=== PATIENT | male | born 1960 | race Caucasian/White ===

== ENCOUNTER 2016-09-25 08:46 | Emergency (ER) | payer OTHER ==
[~2016-09-25] VITALS: Ht 160 cm; Wt 63.8 kg
[~2016-09-25 08:46] MED LIST: FLM4 PO
[2016-09-25 08:50] VITALS: TEMP 36.4; Ht 160 cm; Wt 63.8 kg
[2016-09-25] MEDS ORDERED: ACET-1311 PO (09:08)
[2016-09-25 09:52] LABS: HEMATOCRIT 36.3 % (42-52); MEAN CELL VOLUME 75.6 fL (80-100); MEAN CORPUSCULAR HGB CONC 33.1 g/dl (32-36); MEAN PLATELET VOLUME 9.2 fL (7.4-10.4); PLATELET COUNT 423 K/uL (130-400); WHITE BLOOD COUNT 12.14 K/uL (4.8-10.8)
[2016-09-25 10:04] LABS: PROTHROMBIN TIME (PATIENT) 10.5 SECONDS (9.0-12.0)
[2016-09-25 10:11] LABS: BUN/CREATININE RATIO 10.3 (10-20); CALCIUM 8.8 mg/dl (8.5-10.1); CREATININE 1.1 mg/dl (0.60-1.40); POTASSIUM 4.2 mmol/L (3.5-5.1)
[2016-09-25 10:14] LABS: ALB/GLOB RATIO 0.8 (0.9-2)
[2016-09-25] MEDS ORDERED: HYDR25SU20 PR (10:44)
--- NOTE | 2016-09-25 10:45 | EMERGENCY ROOM VISIT NOTE ---
History First contact with patient: 08:57 Chief Complaint: RECTAL PAIN Stated Complaint: HEMORRHOIDS Nursing Triage Summary: hemorrhoids History of Present Illness Patient is an otherwise healthy 55-year-old white male who presents emergency department for evaluation of painful hemorrhoids 2 weeks. He has been using Preparation H cream and suppositories, which initially were helpful, but his symptoms are not improving. He has been using laxatives and has been moving his bowels, but with pain. He occasionally has some bright red blood in the toilet bowl and on the toilet tissue when he wipes, he also occasionally has some spontaneously in his underwear. He notes it is painful to sit. He rates his discomfort a 5/10. He had an episode of hemorrhoids about 4 years ago which were alleviated with home measures. He denies any upper abdominal pain, no nausea or vomiting. He denies any lightheadedness or dizziness. Review of Systems Review of systems as per HPI. All other systems reviewed were negative. 10 systems reviewed. Past Medical/Surgical History Medical Problems: (1) No Known Active Medical Problems Electronic medical records are reviewed and summarized as above/below. See Problem List. Social History Smoking Status: Current Every Day Smoker Alcohol Use: occasionally Housing Status: lives with family Occupation Status: employed Current/Historical Medications Scheduled Acetaminophen (Tylenol), 650 MG PO UD Hydrocortisone Acetate (Rectal (Anusol-Hc), 1 SUPP AR BID Physical Exam Vital Signs Date Time Temp Pulse Resp B/P (MAP) Pulse Ox O2 Delivery O2 Flow Rate FiO2 09/25/16 11:00 77 16 141/83 100 09/25/16 10:40 77 16 141/83 100 Room Air 09/25/16 08:50 36.4 77 16 177/90 100 Room Air Physical Exam CONSTITUTIONAL: Patient is a well-appearing 55-year-old white male who is awake and alert and in no acute distress. ABDOMEN: Bowel sounds are present. Abdomen is soft, nontender and nondistended. No guarding or rebound. RECTAL EXAM: Patient has 2 large, slightly tender external hemorrhoids, has a smaller, prolapsed internal hemorrhoid that is friable, but no active bleeding. Hemorrhoids are not thrombosed. No perirectal abscesses or fissures are appreciated. INTEGUMENTARY: No lesions or rash, normal skin turgor. LYMPH: No lymphadenopathy. Medical Decision & Procedures Laboratory Results 09/25/16 09:40 09/25/16 09:40 Test 09/25/16 09:40 Red Blood Count 4.80 M/uL (4.7-6.1) Mean Corpuscular Volume 75.6 fL (80-100) Mean Corpuscular Hemoglobin 25.0 pg (25-34) Mean Corpuscular Hemoglobin Concent 33.1 g/dl (32-36) RDW Standard Deviation 50.5 fL (36.4-46.3) RDW Coefficient of Variation 18.1 % (11.5-14.5) Mean Platelet Volume 9.2 fL (7.4-10.4) Prothrombin Time 10.5 SECONDS (9.0-12.0) Prothromb Time International Ratio 1.0 (0.9-1.1) Activated Partial Thromboplast Time 26.8 SECONDS (21.0-31.0) Partial Thromboplastin Ratio 1.0 Anion Gap 6.0 mmol/L (3-11) Est Creatinine Clear Calc Drug Dose 60.3 ml/min Estimated GFR () 86.5 Estimated GFR (Non- 74.6 BUN/Creatinine Ratio 10.3 (10-20) Calcium Level 8.8 mg/dl (8.5-10.1) Total Bilirubin 0.3 mg/dl (0.2-1) Aspartate Amino Transf (AST/SGOT) 18 U/L (15-37) Alanine Aminotransferase (ALT/SGPT) 21 U/L (12-78) Alkaline Phosphatase 68 U/L (45-117) Total Protein 7.5 gm/dl (6.4-8.2) Albumin 3.3 gm/dl (3.4-5.0) Globulin 4.2 gm/dl (2.5-4.0) Albumin/Globulin Ratio 0.8 (0.9-2) ED Course The patient was seen and assessed as above. CBC, CMP and coags were drawn. H& H is slightly low at 12 and 36, unclear if this is chronic for the patient has there are no old records or prior labs for comparison. Remainder of his labs are within normal limits. I was able to obtain an appointment for the patient with general surgery for next week for definitive care and management. He was given a prescription for Anusol suppositories to use in the interim. Differential diagnoses entertained included hemorrhoids, thrombosed hemorrhoid, perirectal/perianal abscess, rectal fistula, rectal fissure, diverticular bleed , among others. Medical Decision See ED Course. Medication Reconcilliation Current Medication List: was personally reviewed by me Blood Pressure Screening Patient's blood pressure: Elevated blood pressure Blood pressure disposition: Referred to PCP Impression Primary Impression: Hemorrhoids Departure Information Prescriptions Hydrocortisone Acetate (Rectal (ANUSOL-HC) 25 Mg Sup 1 SUPP AR BID for 14 Days, #28 SUPP Prov: Cyndee Nielsen PA 09/25/16 Referrals No Doctor, Assigned (PCP) Patient Instructions My [facility] [employer] publishing Additional Instructions Anusol HC suppository: 1 suppository per rectum twice daily. Colace 100mg: Take one twice daily as needed for hard stools or constipation. This is available over the counter. You may eat a regular high fiber diet, without restrictions. Cereals, fruits and vegetables are a good source of fiber. Continue current medications. Return to the ER immediately for abdominal pain, black or worsening bloody stool , passing out or feeling like you may pass out, vomiting, fevers, chest pains, difficulty breathing, worsening of your condition, or as needed. Establish care with a primary care provider for further care and management. Your blood pressure was elevated today. Have blood pressure rechecked. Follow up with General Surgery as arranged.
[2016-09-25 11:00] VITALS: BP 141/83; PULSE 77; O2SAT 100
== END 2016-09-25 11:00 | disposition home or self-care (01) ==
LOC: C.EDB 08:49 → C.EDA 11:00
DX: K64.9 Unspecified hemorrhoids (principal); F17.200 Nicotine dependence, unspecified, uncomplicated

== ENCOUNTER 2024-10-17 19:38 | Inpatient (IN) ==
[2024-10-17 20:08] LABS: Hematocrit (blood only) 29.6 % (42.0-52.0); Hemoglobin 10.6 g/dl (14.0-18.0); Immature Granulocytes # (auto) 0.27 K/uL (0.01-0.20); Immature Granulocytes % (auto) 1.9 %; Mean Corpuscular Hemoglobin 30.0 pg (25.0-34.0); Mean Corpuscular Volume 83.9 fL (80.0-100.0); Platelet Count 229 K/uL (130-400); RDW Standard Deviation 38.2 fL (36.4-46.3); Red Blood Count 3.53 M/uL (4.70-6.10); White Blood Count 14.05 K/ul (4.8-10.8)
[2024-10-17 20:26] LABS: Alanine Aminotransferase 60.0 U/L (7-52); Albumin Globulin Ratio 0.7 (0.9-2); Alkaline Phosphatase 732.0 U/L (34-104); Anion Gap 10.0 (3-11); Bilirubin,Total 0.6 mg/dl (0.2-1.0); Blood Urea Nitrogen 21.0 mg/dl (6-23); Calcium 9.8 mg/dl (8.6-10.3); Carbon Dioxide 25.0 mmol/L (21-32); Chloride 88.0 mmol/L (98-107); Creatinine Clr Calc Pharmacy 48.6 ml/min; Globulin 4.0 gm/dl (2.5-4.0); Glucose 106.0 mg/dl (70-99(Fasting)); Potassium 4.3 mmol/L (3.5-5.1); Sodium 123.0 mmol/L (136-145); Total Protein 6.8 gm/dl (6.0-8.3)
[2024-10-17] MEDS: OPTIRAY 320 100ml IV ONE (22:12)
--- NOTE | 2024-10-17 22:50 | Emergency Department Note ---
Impression & Plan Hyponatremia, Eye swelling, right, Visual changes, Periorbital cellulitis ED Provider Note ED Provider Note NAME: REJI REID AGE:64 SEX: Male : 1960 ARRIVES VIA: private vehicle INFORMANT: Patient ED PROVIDER(s): Em Martinez DO CHIEF COMPLAINT: referred by optometry HPI: This is a 64-year-old male who presents to the emergency department after being referred here by optometry due to concern for right eye swelling. Patient and family report he began noticing blurred and double vision approximately a month ago which led to a prior evaluation and imaging which led to the diagnosis of malignancy. Family states they found tumors in his lungs and liver. He did have an MRI of his brain and did see neurology. There were no lesions noted on his brain. He states over the last 2 weeks he has had difficulty opening his right eye. He has had persistent vision changes. He states today he began to notice right eye swelling and went back to his eye doctor and was referred here for additional evaluation. He denies fevers or chills, admits to pain around the eye and behind the eye. Denies any other sense of headaches or dizziness. He denies nausea or vomiting. PAST MEDICAL HISTORY:See Below PAST SURGICAL HISTORY:See Below FAMILY HISTORY:See Below SOCIAL HISTORY:See Below HOME MEDICATIONS:See Below ALLERGIES:See Below VITALS:See Below PHYSICAL EXAMINATION: GENERAL: alert, well appearing, well nourished, no distress, non-toxic EYE EXAM: left normal conjunctiva, PERRL and EOM's grossly intact; right eye with mild edema noted to the upper eyelid, no other periorbital edema, mild lateral chemosis noted, no subconjunctival hemorrhage, pupil with minimal response to light, increased tearing noted, no discharge OROPHARYNX: no exudate, no erythema, lips, buccal mucosa, and tongue normal and mucous membranes are moist NECK: supple, no nuchal rigidity, no adenopathy, non-tender LUNGS: Clear to auscultation. Normal chest wall mechanics, no w/r/r HEART: no murmurs, S1 normal and S2 normal ABDOMEN: abdomen soft, non-tender, normo-active bowel sounds, no masses, no rebound or guarding. BACK: Back is symmetrical on inspection and there is no deformity, no midline tenderness, no CVA tenderness. SKIN: no rashes, petechiae, orbruising UPPER EXTREMITIES: upper extremities are grossly normal. FROM, nml pulses b/l. LOWER EXTREMITIES: No pitting edema. FROM, nml pulses b/l. NEURO EXAM: Normal sensorium, cranial nerves II-XII grossly intact, normal speech, no facial droop,nogross weakness of arms, no gross weakness of legs. Gross sensation intact. No ataxia. Vital Signs: reviewed and remarkable Differential Diagnosis: Conjunctivitis, trauma, corneal abrasion, hyphema, glaucoma, iritis, corneal ulcer, dendrite, CRAO, CRVO, vitreous detachment, retinal detachment, as well as other pathologies. MEDICAL DECISION MAKING: This is a 64-year-old male who presents to the emergency department after seeing his eye doctor as an outpatient and referred here due to concerning additional findings. Patient with recent admission and finding of metastatic cancer that is still being evaluated. Patient was afebrile and vital signs stable. Labs drawn and sent, IV established, and patient monitored on telemetry. Patient sent for CT head and CT orbits. I did perform extensive ophthalmologic exam at bedside including slit-lamp and intraocular pressure testing. Patient has had blurred and double vision for greater than 1 month now according to the patient and his sister at bedside. He states his eye doctor today was concern for his ptosis and eyelid edema. Patient's clinical exam suggestive of evolving periorbital cellulitis. CT imaging did not show any evidence of retro-orbital infection or hematoma. Change in Noncon CT head tonight compared to 2 weeks ago was discussed with on-call neurosurgery at [facility]. They feel that this could be explained by the recent changes to the patient's health and social history and could be followed up as an outpatient in clinic and repeat CT without contrast performed in a month. Patient and sister updated on results at bedside. Patient was started on IV Unasyn here. Patient noted to have worsening hyponatremia compared to prior. This is previously suspected to be due to beer potomania, it is unclear if this is due to his malignancy or polydipsia with decreased food intake at this time. Given concerning findings, case discussed with the hospitalist team for additional evaluation and mgmt. Consultation(s): 0045: Discussed with Dr. Fernandez, [facility] [place] regarding the presentation and CT findings tonight. 0120: Discussed with DrJASMIN Alexander hospitalist team, for additional evaluation and mgmt. ER Treatment Provided: See below Diagnostics Interpreted By Me: -Cardiac Monitoring: An order was placed for continuous cardiac monitoring. The monitor shows a rate of 98 with normal sinus rhythm. -Laboratory studies: As stated above and show below. -Imaging studies: ct head: no ich Triage Nursing Note Reviewed Prior/Outside Records Reviewed - MRI from 09/27/2024 reviewed, DC summary from 09/28/24 reviewed Procedures: Slit Lamp Examination Indication:right eye swelling Slit lamp examination was performed in the standard fashion. Normal cornea noted on the left, chemosis noted on the right with conjunctival injection. Anterior chamber without cell and flare. Scleral injection present on the right. No discharge present. No foreign bodies noted. The patient tolerated the procedure well without complication. IOP OS 17 OD 24 Past Med/Surg History Problem List Periorbital cellulitis (Acute) Hyponatremia (Acute) Visual changes (Acute) Eye swelling, right (Acute) Insomnia Hypertension Carotid stenosis, left Lung nodule Wheezing Current smoker Hyponatremia (Acute) Headache (Acute) Diplopia (Acute) Metastatic cancer (Acute) Umbilical hernia Alcohol use Nicotine use No known health problems Surgical History History of bladder surgery S/P hemorrhoidectomy Family History Father , from [place] age 62 Myocardial infarction Mother , age 85 of CHF Coronary heart disease Sister Coronary heart disease "clogged arteries" Denies family history of Ovarian cancer Prostate cancer Breast cancer Colorectal cancer Social History Smoking Status: Former smoker Tobacco Type: Cigarettes Age Started Using Tobacco: 13; Age Quit Using Tobacco: 64; packs per day: 1; Cigarettes Per Day: 12-20; Second Hand Exposure: Yes; Do You Dip or Chew Tobacco: No; Hx Alcohol Use: No (Quit 1 month ago) Hx Substance Use: No Preferred Language: Czech Communication Ability: Effective Hearing Ability: Normal Plater Hot Dip Required: No Beliefs That Will Affect Care: None marital status: Single Current Living Situation: Alone current occupational status: employed 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 How many Children do You have: 0 Feels Safe at Home: Yes Childhood Exposure to Second-Hand Smoke: Yes Diet: regular caffeine: Yes during the past year weight has: remained stable Dental Care, Regularly: No 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 Seatbelt Use: always Sunscreen Use: No Assistive Devices: Cane, Crutches and Walker Allergies Allergies Allergy/AdvReac Type Severity Reaction Status Date / Time bee venom protein (honey bee) Allergy Severe SWELL/SOB Unverified 10/12/24 11:51 Home Meds Home Medications Medication Instructions Recorded Confirmed acetaminophen 325 mg tablet 650 mg PO QID PRN Fever Or Pain 09/27/24 10/18/24 meloxicam 15 mg tablet 15 mg PO QAM 10/18/24 10/18/24 trazodone 50 mg tablet 50 mg PO HS 10/18/24 10/18/24 Previous Rx's Medication Instructions Recorded albuterol sulfate 90 mcg/actuation 2 inh inhalation Q4H PRN shortness 09/28/24 aerosol inhaler of breath or wheezing #8.5 grams amlodipine 5 mg tablet 5 mg PO QAM #30 tabs 09/28/24 folic acid 1 mg tablet 1 mg PO QAM #30 tabs 09/28/24 multivitamin with folic acid 400 1 tab PO QAM #30 tabs 09/28/24 mcg tablet (Daily-Susan (with folic acid)) thiamine HCl (vitamin B1) 100 mg 100 mg PO QAM #30 tabs 09/28/24 tablet Results & Data (ED) Vital Signs Vital Signs - 24 hr 10/18/24 00:33 10/18/24 01:00 10/18/24 02:00 Pulse Rate 109 H 110 H Pulse Rate [Apical] 110 H Pulse Rate from SpO2 Sensor 111 H Pulse Rhythm [Apical] Regular Pulse Strength [Apical] Normal Respiratory Rate 17 16 Respiratory Effort / Characteristics Non-Labored Respiratory Depth Normal Respiratory Pattern Regular Blood Pressure [Right Arm] 117/77 Blood Pressure Mean [Right Arm] 90 Blood Pressure Position [Right Arm] Lying Pulse Oximetry 95 95 Oxygen Delivery Method Room Air Room Air Laboratory Data 10/18/24 04:50 10/18/24 16:39 Lab Results 10/17/24 Range/Units 19:50 WBC 14.05 H (4.8-10.8) K/ul RBC 3.53 L (4.70-6.10) M/uL Hgb 10.6 L (14.0-18.0) g/dl Hct 29.6 L (42.0-52.0) % MCV 83.9 (80.0-100.0) fL MCH 30.0 (25.0-34.0) pg MCHC 35.8 (32.0-36.0) g/dL RDW Std Deviation 38.2 (36.4-46.3) fL RDW Coeff of Katty 12.5 (11.5-14.5) % Plt Count 229 (130-400) K/uL MPV 9.9 (9.4-12.4) fL Immature Gran % (Auto) 1.9 % Neut % (Auto) 78.9 % Lymph % (Auto) 10.0 % Assumption % (Auto) 6.8 % Eos % (Auto) 2.1 % Baso % (Auto) 0.3 % Neut # (Auto) 11.09 H (1.40-6.50) K/uL Lymph # (Auto) 1.41 (1.20-3.40) K/uL Assumption # (Auto) 0.95 H (0.11-0.59) K/uL Eos # (Auto) 0.29 (0.00-0.50) K/uL Baso # (Auto) 0.04 (0.00-0.20) K/uL Immature Gran # (Auto) 0.27 H (0.01-0.20) K/uL Sodium 123 L (136-145) mmol/L Potassium 4.3 (3.5-5.1) mmol/L Chloride 88 L (98-107) mmol/L Carbon Dioxide 25 (21-32) mmol/L Anion Gap 10 (3-11) BUN 21 (6-23) mg/dl Creatinine 1.22 (0.6-1.4) mg/dl Est Cr Clr Drug Dosing 48.6 ml/min eGFR 65.79 BUN/Creatinine Ratio 17.2 (10-20) Glucose 106 H (70-99(Fasting)) mg/dl Osmolality 258 L (280-300) mOsm/kg Calcium 9.8 (8.6-10.3) mg/dl Total Bilirubin 0.6 (0.2-1.0) mg/dl AST 67 H (13-39) U/L ALT 60 H (7-52) U/L Alkaline Phosphatase 732 H (34-104) U/L Total Protein 6.8 (6.0-8.3) gm/dl Albumin 2.8 L (3.4-5.0) gm/dl Globulin 4.0 (2.5-4.0) gm/dl Albumin/Globulin Ratio 0.7 L (0.9-2) Administered Medications Acetaminophen (Acetaminophen 325 Mg Tab) 650 mg PO Q4H PRN PRN Reason: Pain or Fever Stop: 11/17/24 03:14 Last Admin: 10/18/24 19:27 Dose: 650 mg Documented By: melonie Admin: 10/18/24 03:36 Dose: 650 mg Documented By: RICARDO Amlodipine Besylate (Amlodipine Besylate 5 Mg Tab) 5 mg PO [facility] Stop: 11/17/24 08:59 Last Admin: 10/18/24 09:19 Dose: 5 mg Documented By: MELIZA Enoxaparin Sodium (Enoxaparin Inj 40 Mg/0.4 Ml Syr) 40 mg SQ Q24H [facility] Stop: 11/17/24 05:59 Last Admin: 10/18/24 06:03 Dose: 40 mg Documented By: RICARDO Folic Acid (Folic Acid 1 Mg Tab) 1 mg PO [facility] Stop: 11/17/24 08:59 Last Admin: 10/18/24 09:19 Dose: 1 mg Documented By: MELIZA Ampicillin Sodium/Sulbactam Sodium (Unasyn) 3,000 mg in 100 mls @ 200 mls/hr IV Q6H [facility] Stop: 10/25/24 05:59 Last Infusion: 10/18/24 17:44 Dose: Infused Documented By: Admin: 10/18/24 17:10 Dose: 200 mls/hr Documented By: Infusion: 10/18/24 13:25 Dose: Infused Documented By: Admin: 10/18/24 12:14 Dose: 200 mls/hr Documented By: Infusion: 10/18/24 06:44 Dose: Infused Documented By: Admin: 10/18/24 06:03 Dose: 200 mls/hr Documented By: RICARDO Vancomycin HCl 750 mg/ Sodium (Chloride) 265 mls @ 200 mls/hr IV Q12H [facility] Stop: 10/25/24 11:59 Last Infusion: 10/18/24 15:36 Dose: Infused Documented By: Admin: 10/18/24 13:52 Dose: 200 mls/hr Documented By: MELIZA Multivitamins (Multivitamin Tab) 1 tab PO QAM [facility] Stop: 11/17/24 08:59 Last Admin: 10/18/24 09:19 Dose: 1 tab Documented By: MELIZA Sodium Chloride (Sodium Chloride 1 Gm Tablet) 1 gm PO BID [facility] Stop: 11/17/24 20:59 Last Admin: 10/18/24 21:15 Dose: 1 gm Documented By: melonie Thiamine HCl (Thiamine Hcl 100 Mg Tab) 100 mg PO QAM [facility] Stop: 11/17/24 08:59 Last Admin: 10/18/24 09:19 Dose: 100 mg Documented By: MELIZA Trazodone HCl (Trazodone Hcl 50 Mg Tab) 50 mg PO HS [facility] Stop: 11/17/24 20:59 Last Admin: 10/18/24 21:15 Dose: 50 mg Documented By: melonie Discontinued Medications Ampicillin Sodium/Sulbactam Sodium (Unasyn) 3,000 mg in 100 mls @ 200 mls/hr IV NOW STA Stop: 10/18/24 00:22 Last Infusion: 10/18/24 01:02 Dose: Infused Documented By: Admin: 10/18/24 00:17 Dose: 200 mls/hr Documented By: LUIS Sodium Chloride (Nss) 1,000 mls @ 100 mls/hr IV .Q10H [facility] Stop: 10/21/24 01:14 Last Infusion: 10/18/24 03:58 Dose: Infused Documented By: Infusion: 10/18/24 03:57 Dose: 0 mls/hr Documented By: Admin: 10/18/24 01:59 Dose: 100 mls/hr Documented By: LUIS Lactated Ringer's (Lr) 1,000 mls @ 999 mls/hr IV .Q1H1M ONE Stop: 10/18/24 04:22 Last Infusion: 10/18/24 04:43 Dose: Infused Documented By: Admin: 10/18/24 03:36 Dose: 999 mls/hr Documented By: RICARDO Vancomycin HCl 1,250 mg/ (Sodium Chloride) 275 mls @ 200 mls/hr IV NOW ONE Stop: 10/18/24 05:37 Last Infusion: 10/18/24 06:02 Dose: Infused Documented By: Admin: 10/18/24 04:33 Dose: 200 mls/hr Documented By: RICARDO Ioversol (Optiray 320 100ml) 93 ml IV ONCE ONE Stop: 10/17/24 22:12 Last Admin: 10/17/24 22:12 Dose: 93 ml Documented By: [facility] Imaging Data Radiologist's Impression: Head CT 10/17/24 21:21 Exam(s): CT HEAD Without Contrast EXAM: CT Head Without Intravenous Contrast CLINICAL HISTORY: Reason for exam: known ca, right eye swelling/vision changes. TECHNIQUE: Axial computed tomography images of the head/brain without intravenous contrast. Automated exposure control was utilized for the study. A dose lowering technique was utilized adhering to the principles of ALARA. COMPARISON: Prior head CT from September 27, 2024. FINDINGS: Brain: There is a new small right subdural hygroma measuring 8.5 mm in maximal diameter and causing 2.6 mm of midline shift to the left.. No hemorrhage. Mild nonspecific white matter changes. No edema. Ventricles: Unremarkable. No ventriculomegaly. Bones/joints: Unremarkable. No acute fracture. Soft tissues: Unremarkable. Sinuses: Chronic sphenoid and ethmoid sinusitis. No acute sinusitis. Mastoid air cells: Unremarkable as visualized. No mastoid effusion. IMPRESSION: No evidence of acute intracranial pathology. There is a new small right subdural hygroma causing 2.6 mm of midline shift to the left. Electronically signed by: Isa Flores MD 10/17/24 23:[address] 10/17/24 21:21 Exam(s): CT ORBITS IV Amt: 93 cc opti 320 EXAM: CT Orbits With Intravenous Contrast CLINICAL HISTORY: Reason for exam: R vision change, chemosis, eyelid swelling. TECHNIQUE: Axial computed tomography images of the orbits with intravenous contrast. Automated exposure control was utilized for the study. A dose lowering technique was utilized adhering to the principles of ALARA. CONTRAST: Patient received 93 cc opti 320 of IV contrast COMPARISON: No relevant prior studies available. FINDINGS: Orbits: Unremarkable. Sinuses: Chronic ethmoid and sphenoid sinusitis. No air-fluid levels. Bones/joints: No acute fracture. Soft tissues: Moderate soft tissue edema over the right orbit and inflammation of the lacrimal gland without evidence of abscess or drainable fluid collection. No radiopaque foreign body. IMPRESSION: Moderate soft tissue swelling over the right orbit and lacrimal gland and without evidence of abscess or drainable fluid collection. Electronically signed by: Isa Flores MD 10/17/24 23:50 PM Discharge Plan Visit Data Chief Complaint: Eye Problems Stated Complaint: EXTERNAL OPTHALMOPLEGIA, REF BY EYE DR ED Provider: Em Martinez Discharge Problem: Hyponatremia, Eye swelling, right, Visual changes, Periorbital cellulitis Patient Disposition: Admitted As Inpatient Condition: Fair Discharge Instructions Interventions: ED Discharge Assessment Last Done: 10/18/24 03:51
--- NOTE | 2024-10-17 23:40 | CT Scan Report ---
Exam(s): CT HEAD Without Contrast EXAM: CT Head Without Intravenous Contrast CLINICAL HISTORY: Reason for exam: known ca, right eye swelling/vision changes. TECHNIQUE: Axial computed tomography images of the head/brain without intravenous contrast. Automated exposure control was utilized for the study. A dose lowering technique was utilized adhering to the principles of ALARA. COMPARISON: Prior head CT from September 27, 2024. FINDINGS: Brain: There is a new small right subdural hygroma measuring 8.5 mm in maximal diameter and causing 2.6 mm of midline shift to the left.. No hemorrhage. Mild nonspecific white matter changes. No edema. Ventricles: Unremarkable. No ventriculomegaly. Bones/joints: Unremarkable. No acute fracture. Soft tissues: Unremarkable. Sinuses: Chronic sphenoid and ethmoid sinusitis. No acute sinusitis. Mastoid air cells: Unremarkable as visualized. No mastoid effusion. IMPRESSION: No evidence of acute intracranial pathology. There is a new small right subdural hygroma causing 2.6 mm of midline shift to the left. Electronically signed by: Isa Flores MD 10/17/24 23:39 PM
--- NOTE | 2024-10-17 23:51 | CT Scan Report ---
Exam(s): CT ORBITS IV Amt: 93 cc opti 320 EXAM: CT Orbits With Intravenous Contrast CLINICAL HISTORY: Reason for exam: R vision change, chemosis, eyelid swelling. TECHNIQUE: Axial computed tomography images of the orbits with intravenous contrast. Automated exposure control was utilized for the study. A dose lowering technique was utilized adhering to the principles of ALARA. CONTRAST: Patient received 93 cc opti 320 of IV contrast COMPARISON: No relevant prior studies available. FINDINGS: Orbits: Unremarkable. Sinuses: Chronic ethmoid and sphenoid sinusitis. No air-fluid levels. Bones/joints: No acute fracture. Soft tissues: Moderate soft tissue edema over the right orbit and inflammation of the lacrimal gland without evidence of abscess or drainable fluid collection. No radiopaque foreign body. IMPRESSION: Moderate soft tissue swelling over the right orbit and lacrimal gland and without evidence of abscess or drainable fluid collection. Electronically signed by: Isa Flores MD 10/17/24 23:50 PM
[2024-10-18] MEDS: AMPICILLIN/SULBACTAM SOD 3,000 MG/100 ML BAG IV STA (00:17)
[2024-10-18] MEDS: SODIUM CHLORIDE 0.9% 1,000 ML IV SCH (01:59)
--- NOTE | 2024-10-18 02:24 | History & Physical Report ---
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 Patient initially tachycardic in the ER with elevated WBC count of 14.05. Did become febrile in the ER. Likely secondary to skin/soft tissue infection vs malignancy. -Admit to medical with telemetry -Check ESR and CRP -Ordered blood cultures when patient became febrile, of note - he already received antibiotics at the time the cultures were ordered -Will give additional 1L crystalloid - sepsis fluid amount 1690mL -Continue antibiotic coverage with Vancomycin and Unasyn -Recommend serial eye exams to test for extraocular movements -Tylenol PRN -Zofran PRN #Periorbital cellulitis - patient with swelling, redness of right eye, very limited extraocular movements in all directions. Pupil is round and appropriately reactive. CT as above does not reveal infection of the orbital structures - no abscess or collection -Follow cultures -Continue antibiotic coverage with Unasyn and Vancomycin -Tylenol PRN #Hyponatremia - patient initially presented with similar. Na now at 123. Patient reports he has been drinking a lot of water but not eating much - suspect low solute intake contributing as well as SIADH from lung mass/presumed malignancy -Check urine and serum osm -Check urine Na -Will complete patient's sepsis fluid with LR -Free H2O restriction 1200mL #Hygroma - CT of the head revealed a new small right subdural hygroma causing a 2.6mm of midline shift to the left. This was discussed extensively between ER attending and Neurosurgery - thought that patient's symptoms are not secondary to this hygroma. Thought that the hygroma at this time is of no surgical or clinical significance and may be secondary to patient's recent abstinence from EtOH or metabolic changes. -Consider re-imaging for stability -If persistent hygroma may need neurosurgical followup outpatient #Hypertension - blood pressure appropriate -Amlodipine 5mg po daily -Monitor #Insomnia -Trazodone 50mg po qHS #History of EtOH use - former -Continue Thiamine, Folic Acid and MVI daily Ppx - Lovenox History of Present Illness Chief Complaint: swelling, periorbital cellulitis right eye Primary Care Provider: Jm Whelan DO Ham Cespedes is a 64yo male presenting with right eye periorbital cellulitis, diplopia. Patient with history of hypertension. He was recently admitted to [facility] 09/27 - 09/28/24 after presenting with diplopia and cranial nerve IV deficit. He was found to have hyponatremia Bd=911 as well as a spiculated mass in RUL suspicious for primary bronchogenic carcinoma. Also found to have numerous hepatic metastasis. Patient had an MRI of the brain on 09/27/24 which was NEGATIVE for infarction, lesion or metastatic disease. He was discharged home on 09/28/24. Patient had a followup visit with his PCP on 10/03/24. He had a liver biopsy performed on 10/05/24 which revealed adenocarcinoma consistent with metastatic colorectal primary. Patint has a followup appointment with [facility] scheduled for 11/01/24. Patient has had swelling and pain of the right eye progressive for the last 2-3 days. He reports seeing double, pain and tearing in the eye as well as some purulent drainage. His swelling has progressed - now patient is unable to open his right eye. He denies fever, chills, chest pain, cough, SOB, nausea, vomiting. No trauma to the eye. He was seen by Ophtho today and sent to the ER. In the ER patient febrile, tachycardic ER Course: Unasyn NSS x 1L Allergies Allergy/AdvReac Type Severity Reaction Status Date / Time bee venom protein (honey bee) Allergy Severe SWELL/SOB Unverified 10/12/24 11:51 Home Medications Medication Instructions Recorded Confirmed Type acetaminophen 325 mg tablet 650 mg PO QID PRN Fever Or Pain 09/27/24 10/18/24 History albuterol sulfate 90 mcg/actuation 2 inh inhalation Q4H PRN shortness 09/28/24 10/18/24 Rx aerosol inhaler of breath or wheezing #8.5 grams amlodipine 5 mg tablet 5 mg PO QAM #30 tabs 09/28/24 10/18/24 Rx folic acid 1 mg tablet 1 mg PO QAM #30 tabs 09/28/24 10/18/24 Rx multivitamin with folic acid 400 1 tab PO QAM #30 tabs 09/28/24 10/18/24 Rx mcg tablet (Daily-Susan (with folic acid)) thiamine HCl (vitamin B1) 100 mg 100 mg PO QAM #30 tabs 09/28/24 10/18/24 Rx tablet meloxicam 15 mg tablet 15 mg PO QAM 10/18/24 10/18/24 History trazodone 50 mg tablet 50 mg PO HS 10/18/24 10/18/24 History Past Med/Surg History Problem List Periorbital cellulitis (Acute) Hyponatremia (Acute) Visual changes (Acute) Eye swelling, right (Acute) Insomnia Hypertension Carotid stenosis, left Lung nodule Wheezing Current smoker Hyponatremia (Acute) Headache (Acute) Diplopia (Acute) Metastatic cancer (Acute) Umbilical hernia Alcohol use Nicotine use No known health problems Surgical History History of bladder surgery S/P hemorrhoidectomy Family History Father , from [place] age 62 Myocardial infarction Mother , age 85 of CHF Coronary heart disease Sister Coronary heart disease "clogged arteries" Denies family history of Ovarian cancer Prostate cancer Breast cancer Colorectal cancer Social History Smoking Status: Former smoker Tobacco Type: Cigarettes Age Started Using Tobacco: 13; Age Quit Using Tobacco: 64; packs per day: 1; Cigarettes Per Day: 12-20; Second Hand Exposure: Yes; Do You Dip or Chew Tobacco: No; Hx Alcohol Use: No (Quit 1 month ago) Hx Substance Use: No Preferred Language: Occitan Communication Ability: Effective Hearing Ability: Normal Campus Recruiter Required: No Beliefs That Will Affect Care: None marital status: Single Current Living Situation: Alone current occupational status: employed 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 How many Children do You have: 0 Feels Safe at Home: Yes Childhood Exposure to Second-Hand Smoke: Yes Diet: regular caffeine: Yes during the past year weight has: remained stable Dental Care, Regularly: No 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 Seatbelt Use: always Sunscreen Use: No Assistive Devices: Cane and Walker Review of Systems Review of Systems: All systems reviewed & are unremarkable except as noted in HPI & below Physical Exam Physical Exam: General: patient resting comfortably, NAD HEENT: NC/AT, right eye with mild periorbital edema mostly of upper eyelid, redness, cellulitis, patient unable to open eye, limited eye movement to all directions, some conjunctival injection and tearing, pupils equal, round and reactive, examination of left eye largely unremarkable, external ear normal to inspection and nontender, nares patent, moist mucus membranes, dentition intact, no oropharyngeal lesions, neck supple, trachea midline, no LAD, no thyromegaly, no JVD Heart: +S1/S2, regular, tachycardic, no m/r/g Lungs: equal air entry bilaterally, no rales/rhonchi/wheezes Abd: +BS, soft, NT/ND, no masses/organomegaly/ascites Ext: warm, 2+ pulses in UE/LE bilaterally, no clubbing/cyanosis or edema Results & Data Results & Data Vital Signs (Past 12 Hours) Vital Signs Temp Pulse Pulse Resp BP BP Pulse Ox 10/18/24 01:00 110 H 17 117/77 95 10/18/24 00:33 109 H 10/17/24 23:00 104 H 18 132/82 93 10/17/24 22:36 92 H 14 95 10/17/24 22:21 92 H 18 98 10/17/24 22:15 92 H 21 98 10/17/24 22:06 93 H 17 95 10/17/24 21:42 94 H 24 93 10/17/24 21:33 93 H 24 94 10/17/24 21:12 90 20 96 10/17/24 21:00 90 16 95 10/17/24 20:57 89 18 95 10/17/24 20:42 88 18 95 10/17/24 20:30 85 23 96 10/17/24 20:25 89 10/17/24 19:41 36.9 C 93 H 19 130/70 99 O2 Del Method 10/18/24 01:00 Room Air 10/18/24 00:33 10/17/24 23:00 Room Air 10/17/24 22:36 10/17/24 22:21 10/17/24 22:15 10/17/24 22:06 10/17/24 21:42 10/17/24 21:33 10/17/24 21:12 10/17/24 21:00 10/17/24 20:57 10/17/24 20:42 10/17/24 20:30 10/17/24 20:25 10/17/24 19:41 Room Air Laboratory Results Laboratory Results WBC 14.05 K/ul (4.8-10.8) H 10/17/24 19:50 RBC 3.53 M/uL (4.70-6.10) L 10/17/24 19:50 Hgb 10.6 g/dl (14.0-18.0) L 10/17/24 19:50 Hct 29.6 % (42.0-52.0) L 10/17/24 19:50 MCV 83.9 fL (80.0-100.0) 10/17/24 19:50 MCH 30.0 pg (25.0-34.0) 10/17/24 19:50 MCHC 35.8 g/dL (32.0-36.0) 10/17/24 19:50 RDW Std Deviation 38.2 fL (36.4-46.3) 10/17/24 19:50 RDW Coeff of Katty 12.5 % (11.5-14.5) 10/17/24 19:50 Plt Count 229 K/uL (130-400) 10/17/24 19:50 MPV 9.9 fL (9.4-12.4) 10/17/24 19:50 Immature Gran % (Auto) 1.9 % 10/17/24 19:50 Neut % (Auto) 78.9 % 10/17/24 19:50 Lymph % (Auto) 10.0 % 10/17/24 19:50 [place] % (Auto) 6.8 % 10/17/24 19:50 Eos % (Auto) 2.1 % 10/17/24 19:50 Baso % (Auto) 0.3 % 10/17/24 19:50 Neut # (Auto) 11.09 K/uL (1.40-6.50) H 10/17/24 19:50 Lymph # (Auto) 1.41 K/uL (1.20-3.40) 10/17/24 19:50 [place] # (Auto) 0.95 K/uL (0.11-0.59) H 10/17/24 19:50 Eos # (Auto) 0.29 K/uL (0.00-0.50) 10/17/24 19:50 Baso # (Auto) 0.04 K/uL (0.00-0.20) 10/17/24 19:50 Immature Gran # (Auto) 0.27 K/uL (0.01-0.20) H 10/17/24 19:50 Sodium 123 mmol/L (136-145) L 10/17/24 19:50 Potassium 4.3 mmol/L (3.5-5.1) 10/17/24 19:50 Chloride 88 mmol/L (98-107) L 10/17/24 19:50 Carbon Dioxide 25 mmol/L (21-32) 10/17/24 19:50 Anion Gap 10 (3-11) 10/17/24 19:50 BUN 21 mg/dl (6-23) 10/17/24 19:50 Creatinine 1.22 mg/dl (0.6-1.4) 10/17/24 19:50 Est Cr Clr Drug Dosing 48.6 ml/min 10/17/24 19:50 eGFR 65.79 10/17/24 19:50 BUN/Creatinine Ratio 17.2 (10-20) 10/17/24 19:50 Glucose 106 mg/dl (70-99(Fasting)) H 10/17/24 19:50 Calcium 9.8 mg/dl (8.6-10.3) 10/17/24 19:50 Total Bilirubin 0.6 mg/dl (0.2-1.0) 10/17/24 19:50 AST 67 U/L (13-39) H 10/17/24 19:50 ALT 60 U/L (7-52) H 10/17/24 19:50 Alkaline Phosphatase 732 U/L (34-104) H 10/17/24 19:50 Total Protein 6.8 gm/dl (6.0-8.3) 10/17/24 19:50 Albumin 2.8 gm/dl (3.4-5.0) L 10/17/24 19:50 Globulin 4.0 gm/dl (2.5-4.0) 10/17/24 19:50 Albumin/Globulin Ratio 0.7 (0.9-2) L 10/17/24 19:[address] 10/17/24 21:21 Exam(s): CT HEAD Without Contrast EXAM: CT Head Without Intravenous Contrast CLINICAL HISTORY: Reason for exam: known ca, right eye swelling/vision changes. TECHNIQUE: Axial computed tomography images of the head/brain without intravenous contrast. Automated exposure control was utilized for the study. A dose lowering technique was utilized adhering to the principles of ALARA. COMPARISON: Prior head CT from September 27, 2024. FINDINGS: Brain: There is a new small right subdural hygroma measuring 8.5 mm in maximal diameter and causing 2.6 mm of midline shift to the left.. No hemorrhage. Mild nonspecific white matter changes. No edema. Ventricles: Unremarkable. No ventriculomegaly. Bones/joints: Unremarkable. No acute fracture. Soft tissues: Unremarkable. Sinuses: Chronic sphenoid and ethmoid sinusitis. No acute sinusitis. Mastoid air cells: Unremarkable as visualized. No mastoid effusion. IMPRESSION: No evidence of acute intracranial pathology. There is a new small right subdural hygroma causing 2.6 mm of midline shift to the left. Electronically signed by: Isa Flores MD 10/17/24 23:[address] 10/17/24 21:21 Exam(s): CT ORBITS IV Amt: 93 cc opti 320 EXAM: CT Orbits With Intravenous Contrast CLINICAL HISTORY: Reason for exam: R vision change, chemosis, eyelid swelling. TECHNIQUE: Axial computed tomography images of the orbits with intravenous contrast. Automated exposure control was utilized for the study. A dose lowering technique was utilized adhering to the principles of ALARA. CONTRAST: Patient received 93 cc opti 320 of IV contrast COMPARISON: No relevant prior studies available. FINDINGS: Orbits: Unremarkable. Sinuses: Chronic ethmoid and sphenoid sinusitis. No air-fluid levels. Bones/joints: No acute fracture. Soft tissues: Moderate soft tissue edema over the right orbit and inflammation of the lacrimal gland without evidence of abscess or drainable fluid collection. No radiopaque foreign body. IMPRESSION: Moderate soft tissue swelling over the right orbit and lacrimal gland and without evidence of abscess or drainable fluid collection. Electronically signed by: Isa Flores MD 10/17/24 23:50 PM Code Status & VTE Plan VTE Prophylaxis Plan VTE Prophylaxis will be ordered: Yes PG Care Time/CCT Total # of Minutes Spent Total Time Spent with Patient: Total time spent is greater than 50% in coordination of care (as documented) at patient's floor/unit and/or counseling patient: Coding Level of Care Code 31038 INT INP/OBS CARE 3/75MIN Diagnoses Periorbital cellulitis L03.213 Hyponatremia E87.1 Hypertension I10 Metastatic cancer C79.9
[2024-10-18] MEDS: LACTATED RINGER'S 1,000 ML IV ONE (03:36)
[2024-10-18] MEDS: ACETAMINOPHEN 325 MG TAB PO PRN (03:36)
[2024-10-18] MEDS ORDERED: VANCOMYCIN CONSULT ACTIVE PRN (03:50)
[2024-10-18] MEDS ORDERED: VANCOMYCIN HCL / NSS 1,000 MG/270 ML BAG IV SCH (03:50)
[2024-10-18] MEDS ORDERED: ACETAMINOPHEN 325 MG TAB PO PRN (03:50)
[2024-10-18] MEDS ORDERED: ALBUTEROL HFA 8 GM INHALER INH PRN (03:50)
[2024-10-18] MEDS: VANCOMYCIN HCL 1,250 MG in SODIUM CHLORIDE 0.9% 250 ML IV ONE (04:33)
[2024-10-18 05:04] LABS: Hematocrit (blood only) 26.6 % (42.0-52.0); Hemoglobin 9.4 g/dl (14.0-18.0); Mean Corpuscular Hemoglobin 29.2 pg (25.0-34.0); Mean Corpuscular Volume 82.6 fL (80.0-100.0); Platelet Count 205 K/uL (130-400); RDW Standard Deviation 38.0 fL (36.4-46.3); Red Blood Count 3.22 M/uL (4.70-6.10); White Blood Count 14.22 K/ul (4.8-10.8)
[2024-10-18 05:20] LABS: Magnesium 1.7 mg/dl (1.7-2.4)
[2024-10-18 05:21] LABS: Alanine Aminotransferase 46.0 U/L (7-52); Alkaline Phosphatase 646.0 U/L (34-104); Anion Gap 10.0 (3-11); Bilirubin,Total 0.6 mg/dl (0.2-1.0); Blood Urea Nitrogen 17.0 mg/dl (6-23); Calcium 8.8 mg/dl (8.6-10.3); Carbon Dioxide 22.0 mmol/L (21-32); Chloride 92.0 mmol/L (98-107); Creatinine Clr Calc Pharmacy 61.1 ml/min; Glucose 85.0 mg/dl (70-99(Fasting)); Potassium 4.0 mmol/L (3.5-5.1); Sodium 124.0 mmol/L (136-145); Total Protein 5.9 gm/dl (6.0-8.3)
[2024-10-18 05:47] LABS: INR 1.3 (0.9-1.1); Prothrombin Time 13.6 Seconds (9.0-12.0)
--- NOTE | 2024-10-18 05:58 | Pharmacy Report ---
Pharmacy PK ABX Note - Date of Service October 18, 2024 - Assessment and Plan Assessment 64 year old M receiving Unasyn/vancomycin for treatment of periorbital cellulitis. Pertinent microbiologic data includes: blood cultures pending. Day # 1 of antimicrobial therapy. Plan Vancomycin * Loading dose: 1250 mg IV x 1 * Maintenance dose: 750 mg IV every 12 hours * Regimen is predicted to achieve target AUC/HARI of 400-600 mg/L.hr * Random level ordered for: 10/20/24 @ 0800 Pharmacy will continue to follow and will adjust dose/frequency as necessary. Thank you. Pharmacy has transitioned to AUC monitoring for vancomycin. AUC/HARI is the preferred PK/PD target and is associated with decreased risk of nephrotoxicity compared to traditional trough targets.
[2024-10-18] MEDS: AMPICILLIN/SULBACTAM SOD 3,000 MG/100 ML BAG IV SCH (06:03)
[2024-10-18] MEDS: ENOXAPARIN INJ 40 MG/0.4 ML SYR SQ SCH (06:03)
[2024-10-18] MEDS: THIAMINE HCL 100 MG TAB PO SCH (09:19)
[2024-10-18] MEDS: FOLIC ACID 1 MG TAB PO SCH (09:19)
[2024-10-18] MEDS: MULTIVITAMIN TAB PO SCH (09:19)
--- NOTE | 2024-10-18 11:45 | CT Scan Report ---
CT SCAN OF THE BRAIN WITHOUT IV CONTRAST CLINICAL HISTORY: Follow-up hygroma COMPARISON STUDY: CT of the brain dated 10/17/2024. CT and MRI of the brain dated 09/27/2024. TECHNIQUE: Unenhanced axial CT scan of the brain is performed from the vertex to the skull base. Imag es are reviewed in the axial, sagittal, coronal planes. A dose lowering technique was utilized adheri ng to the principles of ALARA. CT DOSE: 663.26 mGy.cm FINDINGS: Brain parenchyma: A low-attenuation extra-axial fluid collection along the right convexity has not ap preciably changed from yesterday, but is new from 09/27/2024. This measures up to 1.0 cm and effaces t he subjacent cortical sulci. There is approximately 2 mm of [id number] midline shift. There is age -related involutional change noting [id number] patchy subcortical and periventricular microangi opathic disease. No parenchymal hemorrhage is identified. There is no evidence of acute territorial i schemia by CT criteria. Leyva-white matter differentiation is preserved. No extra-axial fluid collecti on is seen on the left. Ventricles, sulci, cisterns: Prominent secondary to involutional change. Intracranial vasculature: There is atherosclerotic calcification of the cavernous carotid arteries. Calvarium: No depressed calvarial fracture is seen. Soft tissues: There is right periorbital/supraorbital scalp contusion. Sinuses and mastoids: There is complete opacification of the sphenoid sinuses and the posterior ethmo id sinuses. Thickening and sclerosis of the sinus cruz indicates chronicity. Moderate mucosal thicke florence seen within the frontal sinuses and anterior ethmoid sinuses. There is mild mucosal thickening w ithin the maxillary antra. There are small mastoid effusions. Orbits: The bony orbits are grossly intact. IMPRESSION: 1. Again seen is a low attenuation extra-axial fluid collection along the right convexity. This is un changed from yesterday, but new from 09/27/2024. This could represent an acute subdural hygroma or a l ow-attenuation subdural hematoma. 2. This causes mass effect with effacement of the subjacent cortical sulci and minimal right to left midline shift. This is also unchanged. 3. There is no parenchymal hemorrhage or evidence of acute territorial ischemia by CT criteria. 4. There is right periorbital/supraorbital soft tissue edema. 6. Pansinus disease as above. ACT 112: Negative or not required by law. Electronically signed by: Paul Barbosa M.D. 10/18/2024 11:44 AM
--- NOTE | 2024-10-18 12:27 | Infectious Disease Consult ---
Date of Consultation October 18, 2024 Assessment & Plan (1) Periorbital cellulitis: Plan Problems: #Preseptal cellulitis Micro: 10/18 BCx x2: pending Abx: Vanc 10/18 - present Unasyn 10/18 - present 64 yo M with HTN, recent admission 09/27-09/28/24 with diplopia and CN IV deficit, found to have hyponatremia and spiculated mass in RUL suspicious for primary bronchogenic carcinoma, as well as numerous hepatic metastases s/p liver biopsy 10/05/24 which revealed adenocarcinoma consistent with metastatic colorectal primary who presented on 10/17 with progressive R eye swelling and pain x 2-3 days. Reported seeing double, and also pain and tearing in his eye and some purulent drainage. Unable to open his R eye due to swelling. Denied fevers, chills. He was seen by ophthalmology today and sent to the ED. Admitted for preseptal cellulitis. On presentation, pt was afebrile, VSS. Labs showed WBC 14.05, Na 123, AST 67, ALT 60, alk phos 732, ESR 79. CT head with no evidence of acute intracranial pathology, new small R subdural hygroma causing 2.6 mm midline shift to left. CT orbits with IV contrast showed moderate soft tissue swelling over the R orbit and lacrimal gland and without evidence of abscess or drainable fluid collection. Started on vanc, Unasyn. Liver US with multifocal hepatic metastasis, contracted gallbladder with mild wall thickening, no biliary ductal dilation. Discussion: With difficulty with extraocular movements, does raise concern for orbital cellulitis. However, no comment on inflammation of extraocular muscles, fat stranding on CT orbits. Will continue antibiotics and monitor for improvement. Recommendations: - Continue vanc, Unasyn and monitor for improvement Will continue to follow Consultation Information This patient recommendation is based on a telemedicine consult request which was completed asynchronously through chart review and information provided by the primary physician. The patient was not seen or examined today. The evaluation is consultative in nature and all patient care and treatment decisions can either be accepted or rejected by the patient's primary hospital-based treating physician using their own independent medical judgment for their patient. [employer] contact information: Please call [facility] . (Phone Number For Physician Use Only) An e-consult was performed as the video cart is not functioning. Time Spent Reviewing Chart: 31+ minutes History of Present Illness Reason for Consultation: Preseptal cellulitis, sepsis Attending Physician: Aj Giles MD History of Present Illness 64 yo M with HTN, recent admission 09/27-09/28/24 with diplopia and CN IV deficit, found to have hyponatremia and spiculated mass in RUL suspicious for primary bronchogenic carcinoma, as well as numerous hepatic metastases s/p liver biopsy 10/05/24 which revealed adenocarcinoma consistent with metastatic colorectal primary who presented on 10/17 with progressive R eye swelling and pain x 2-3 days. Reported seeing double, and also pain and tearing in his eye and some purulent drainage. Unable to open his R eye due to swelling. Denied fevers, chills. He was seen by ophthalmology today and sent to the ED. On presentation, pt was afebrile, VSS. Labs showed WBC 14.05, Na 123, AST 67, ALT 60, alk phos 732, ESR 79. CT head with no evidence of acute intracranial pathology, new small R subdural hygroma causing 2.6 mm midline shift to left. CT orbits with IV contrast showed moderate soft tissue swelling over the R orbit and lacrimal gland and without evidence of abscess or drainable fluid collection. Started on vanc, Unasyn. Liver US with multifocal hepatic metastasis, contracted gallbladder with mild wall thickening, no biliary ductal dilation. Allergies Allergy/AdvReac Type Severity Reaction Status Date / Time bee venom protein (honey bee) Allergy Severe SWELL/SOB Unverified 10/12/24 11:51 Home Medications Medication Instructions Recorded Confirmed Type acetaminophen 325 mg tablet 650 mg PO QID PRN Fever Or Pain 09/27/24 10/18/24 History albuterol sulfate 90 mcg/actuation 2 inh inhalation Q4H PRN shortness 09/28/24 10/18/24 Rx aerosol inhaler of breath or wheezing #8.5 grams amlodipine 5 mg tablet 5 mg PO QAM #30 tabs 09/28/24 10/18/24 Rx folic acid 1 mg tablet 1 mg PO QAM #30 tabs 09/28/24 10/18/24 Rx multivitamin with folic acid 400 1 tab PO QAM #30 tabs 09/28/24 10/18/24 Rx mcg tablet (Daily-Susan (with folic acid)) thiamine HCl (vitamin B1) 100 mg 100 mg PO QAM #30 tabs 09/28/24 10/18/24 Rx tablet meloxicam 15 mg tablet 15 mg PO QAM 10/18/24 10/18/24 History trazodone 50 mg tablet 50 mg PO HS 10/18/24 10/18/24 History Patient History Surgical History History of bladder surgery S/P hemorrhoidectomy Family History Father , from [place] age 62 Myocardial infarction Mother , age 85 of CHF Coronary heart disease Sister Coronary heart disease "clogged arteries" Denies family history of Ovarian cancer Prostate cancer Breast cancer Colorectal cancer Social History Smoking Status: Former smoker Tobacco Type: Cigarettes Age Started Using Tobacco: 13; Age Quit Using Tobacco: 64; packs per day: 1; Cigarettes Per Day: 12-20; Second Hand Exposure: Yes; Do You Dip or Chew Tobacco: No; Hx Alcohol Use: No (Quit 1 month ago) Hx Substance Use: No Preferred Language: [place] Islander Communication Ability: Effective Hearing Ability: Normal Train Master Required: No Beliefs That Will Affect Care: None marital status: Single Current Living Situation: Alone current occupational status: employed 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 How many Children do You have: 0 Feels Safe at Home: Yes Childhood Exposure to Second-Hand Smoke: Yes Diet: regular caffeine: Yes during the past year weight has: remained stable Dental Care, Regularly: No 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 Seatbelt Use: always Sunscreen Use: No Assistive Devices: Cane, Crutches and Walker Results & Data Vital Signs (Past 12 Hours) Vital Signs Temp Pulse Pulse Resp BP BP Pulse Ox 10/18/24 09:19 100 H 18 128/68 94 10/18/24 06:59 98 H 10/18/24 04:49 103 H 10/18/24 04:30 36.9 C 10/18/24 03:05 38.1 C H 10/18/24 03:00 110 H 22 134/79 92 10/18/24 02:27 109 H 22 94 10/18/24 02:00 110 H 16 95 10/18/24 01:00 110 H 17 117/77 95 10/18/24 00:33 109 H O2 Del Method 10/18/24 09:19 Room Air 10/18/24 06:59 10/18/24 04:49 10/18/24 04:30 10/18/24 03:05 10/18/24 03:00 10/18/24 02:27 10/18/24 02:00 Room Air 10/18/24 01:00 Room Air 10/18/24 00:33 Laboratory Results Short CBC 10/17/24 10/18/24 Range/Units 19:50 04:50 WBC 14.05 H 14.22 H (4.8-10.8) K/ul Hgb 10.6 L 9.4 L (14.0-18.0) g/dl Hct 29.6 L 26.6 L (42.0-52.0) % Plt Count 229 205 (130-400) K/uL BMP 10/17/24 10/18/24 10/18/24 19:50 04:50 11:30 Sodium 123 L 124 L 126 L Potassium 4.3 4.0 4.3 Chloride 88 L 92 L 92 L Carbon Dioxide 25 BUN 21 17 18 Creatinine 1.22 0.97 1.03 Glucose 106 H 85 71 Calcium 9.8 8.8 9.5 Liver Function 10/17/24 10/18/24 Range/Units 19:50 04:50 Total Bilirubin 0.6 0.6 (0.2-1.0) mg/dl Direct Bilirubin 0.2 (0-0.2) mg/dl AST 67 H 52 H (13-39) U/L ALT 60 H 46 (7-52) U/L Alkaline Phosphatase 732 H 646 H (34-104) U/L Albumin 2.8 L 2.5 L (3.4-5.0) gm/dl Diagnostic Findings Head CT 10/17/24 21:21 Exam(s): CT HEAD Without Contrast EXAM: CT Head Without Intravenous Contrast CLINICAL HISTORY: Reason for exam: known ca, right eye swelling/vision changes. TECHNIQUE: Axial computed tomography images of the head/brain without intravenous contrast. Automated exposure control was utilized for the study. A dose lowering technique was utilized adhering to the principles of ALARA. COMPARISON: Prior head CT from September 27, 2024. FINDINGS: Brain: There is a new small right subdural hygroma measuring 8.5 mm in maximal diameter and causing 2.6 mm of midline shift to the left.. No hemorrhage. Mild nonspecific white matter changes. No edema. Ventricles: Unremarkable. No ventriculomegaly. Bones/joints: Unremarkable. No acute fracture. Soft tissues: Unremarkable. Sinuses: Chronic sphenoid and ethmoid sinusitis. No acute sinusitis. Mastoid air cells: Unremarkable as visualized. No mastoid effusion. IMPRESSION: No evidence of acute intracranial pathology. There is a new small right subdural hygroma causing 2.6 mm of midline shift to the left. Electronically signed by: Isa Flores MD 10/17/24 23:[address] 10/17/24 21:21 Exam(s): CT ORBITS IV Amt: 93 cc opti 320 EXAM: CT Orbits With Intravenous Contrast CLINICAL HISTORY: Reason for exam: R vision change, chemosis, eyelid swelling. TECHNIQUE: Axial computed tomography images of the orbits with intravenous contrast. Automated exposure control was utilized for the study. A dose lowering technique was utilized adhering to the principles of ALARA. CONTRAST: Patient received 93 cc opti 320 of IV contrast COMPARISON: No relevant prior studies available. FINDINGS: Orbits: Unremarkable. Sinuses: Chronic ethmoid and sphenoid sinusitis. No air-fluid levels. Bones/joints: No acute fracture. Soft tissues: Moderate soft tissue edema over the right orbit and inflammation of the lacrimal gland without evidence of abscess or drainable fluid collection. No radiopaque foreign body. IMPRESSION: Moderate soft tissue swelling over the right orbit and lacrimal gland and without evidence of abscess or drainable fluid collection. Electronically signed by: Isa Flores MD 10/17/24 23:50 PM Liver Ultrasound 10/18/24 02:23 ABDOMINAL ULTRASOUND, RIGHT UPPER QUADRANT HISTORY: Acutely elevated LFTs abnormal LFTs. COMPARISON: PET CT 10/11/2024, ultrasound-guided biopsy of the liver 10/05/2024 FINDINGS: Pancreas: The pancreas demonstrates a normal echotexture, partially obscured by bowel gas. Liver: Multifocal hepatic metastasis redemonstrated measuring up to approximately 6.7 cm, generally stable compared to the prior PET/CT one week earlier. Pathologically enlarged periportal lymph nodes are again seen. Gallbladder: Partially contracted with mild wall thickening. No gallstones. CBD: 4 mm Right kidney: Mild pelviectasis without hydronephrosis. IMPRESSION: 1. Multifocal hepatic metastasis redemonstrated which appear similar to the PET/CT from 10/11/2024. 2. Contracted gallbladder with mild wall thickening. No cholelithiasis identified. 3. No biliary ductal dilation. ACT 112: Negative or not required by law. Electronically signed by: Francisco Mcneill M.D. 10/18/2024 1:[address] 10/18/24 10:12 CT SCAN OF THE BRAIN WITHOUT IV CONTRAST CLINICAL HISTORY: Follow-up hygroma COMPARISON STUDY: CT of the brain dated 10/17/2024. CT and MRI of the brain dated 09/27/2024. TECHNIQUE: Unenhanced axial CT scan of the brain is performed from the vertex to the skull base. Images are reviewed in the axial, sagittal, coronal planes. A dose lowering technique was utilized adhering to the principles of ALARA. CT DOSE: 663.26 mGy.cm FINDINGS: Brain parenchyma: A low-attenuation extra-axial fluid collection along the right convexity has not appreciably changed from yesterday, but is new from 09/27/2024. This measures up to 1.0 cm and effaces the subjacent cortical sulci. There is approximately 2 mm of [id number] midline shift. There is age-related involutional change noting [id number] patchy subcortical and periventricular microangiopathic disease. No parenchymal hemorrhage is identified. There is no evidence of acute territorial ischemia by CT criteria. Leyva-white matter differentiation is preserved. No extra-axial fluid collection is seen on the left. Ventricles, sulci, cisterns: Prominent secondary to involutional change. Intracranial vasculature: There is atherosclerotic calcification of the cavernous carotid arteries. Calvarium: No depressed calvarial fracture is seen. Soft tissues: There is right periorbital/supraorbital scalp contusion. Sinuses and mastoids: There is complete opacification of the sphenoid sinuses and the posterior ethmoid sinuses. Thickening and sclerosis of the sinus cruz indicates chronicity. Moderate mucosal thickening seen within the frontal sinuses and anterior ethmoid sinuses. There is mild mucosal thickening within the maxillary antra. There are small mastoid effusions. Orbits: The bony orbits are grossly intact. IMPRESSION: 1. Again seen is a low attenuation extra-axial fluid collection along the right convexity. This is unchanged from yesterday, but new from 09/27/2024. This could represent an acute subdural hygroma or a low-attenuation subdural hematoma. 2. This causes mass effect with effacement of the subjacent cortical sulci and minimal right to left midline shift. This is also unchanged. 3. There is no parenchymal hemorrhage or evidence of acute territorial ischemia by CT criteria. 4. There is right periorbital/supraorbital soft tissue edema. 6. Pansinus disease as above. ACT 112: Negative or not required by law. Electronically signed by: Paul Barbosa M.D. 10/18/2024 11:44 AM Medications Administered Current Inpatient Medications Acetaminophen (Acetaminophen 325 Mg Tab) 650 mg PO Q4H PRN PRN Reason: Pain or Fever Stop: 11/17/24 03:14 Last Admin: 10/18/24 03:36 Dose: 650 mg Acetaminophen (Acetaminophen 325 Mg Tab) 650 mg PO QID PRN PRN Reason: Fever Or Pain Stop: 11/17/24 03:49 Albuterol (Albuterol Hfa 8 Gm Inhaler) 2 puffs INH Q4H PRN PRN Reason: shortness of breath or wheezing Stop: 11/17/24 03:49 Amlodipine Besylate (Amlodipine Besylate 5 Mg Tab) 5 mg PO QAM [facility] Stop: 11/17/24 08:59 Last Admin: 10/18/24 09:19 Dose: 5 mg Docusate Sodium (Docusate Sodium 100 Mg Cap) 100 mg PO BID PRN PRN Reason: Constipation Stop: 11/17/24 03:49 Enoxaparin Sodium (Enoxaparin Inj 40 Mg/0.4 Ml Syr) 40 mg SQ Q24H [facility] Stop: 11/17/24 05:59 Last Admin: 10/18/24 06:03 Dose: 40 mg Folic Acid (Folic Acid 1 Mg Tab) 1 mg PO QAM [facility] Stop: 11/17/24 08:59 Last Admin: 10/18/24 09:19 Dose: 1 mg Ampicillin Sodium/Sulbactam Sodium (Unasyn) 3,000 mg in 100 mls @ 200 mls/hr IV Q6H [facility] Stop: 10/25/24 05:59 Last Infusion: 10/18/24 13:25 Dose: Infused Vancomycin HCl 750 mg/ Sodium (Chloride) 265 mls @ 200 mls/hr IV Q12H [facility] Stop: 10/25/24 11:59 Last Admin: 10/18/24 13:52 Dose: 200 mls/hr Meloxicam (Meloxicam 7.5 Mg Tab) 15 mg PO QAM [facility] Stop: 11/17/24 08:59 Miscellaneous Information (Vancomycin Consult Active) 1 each N/A UD PRN PRN Reason: Consult Stop: 11/17/24 03:49 Multivitamins (Multivitamin Tab) 1 tab PO QAM [facility] Stop: 11/17/24 08:59 Last Admin: 10/18/24 09:19 Dose: 1 tab Ondansetron HCl (Ondansetron Inj 2 Mg/Ml 2 Ml Vial) 4 mg IV Q6H PRN PRN Reason: Nausea And Vomiting Stop: 11/17/24 03:49 Thiamine HCl (Thiamine Hcl 100 Mg Tab) 100 mg PO QAM [facility] Stop: 11/17/24 08:59 Last Admin: 10/18/24 09:19 Dose: 100 mg Trazodone HCl (Trazodone Hcl 50 Mg Tab) 50 mg PO HS [facility] Stop: 11/17/24 20:59
[2024-10-18 12:59] LABS: Anion Gap 9.0 (3-11); Blood Urea Nitrogen 18.0 mg/dl (6-23); Calcium 9.5 mg/dl (8.6-10.3); Carbon Dioxide 25.0 mmol/L (21-32); Chloride 92.0 mmol/L (98-107); Creatinine Clr Calc Pharmacy 57.5 ml/min; Glucose 71.0 mg/dl (70-99(Fasting)); Potassium 4.3 mmol/L (3.5-5.1); Sodium 126.0 mmol/L (136-145)
--- NOTE | 2024-10-18 13:35 | Ultrasound Report ---
ABDOMINAL ULTRASOUND, RIGHT UPPER QUADRANT HISTORY: Acutely elevated LFTs abnormal LFTs. COMPARISON: PET CT 10/11/2024, ultrasound-guided biopsy of the liver 10/05/2024 FINDINGS: Pancreas: The pancreas demonstrates a normal echotexture, partially obscured by bowel gas. Liver: Multifocal hepatic metastasis redemonstrated measuring up to approximately 6.7 cm, generally s table compared to the prior PET/CT one week earlier. Pathologically enlarged periportal lymph nodes a re again seen. Gallbladder: Partially contracted with mild wall thickening. No gallstones. CBD: 4 mm Right kidney: Mild pelviectasis without hydronephrosis. IMPRESSION: 1. Multifocal hepatic metastasis redemonstrated which appear similar to the PET/CT from 10/11/2024. 2. Contracted gallbladder with mild wall thickening. No cholelithiasis identified. 3. No biliary ductal dilation. ACT 112: Negative or not required by law. Electronically signed by: Francisco Mcneill M.D. 10/18/2024 1:34 PM
[2024-10-18] MEDS: VANCOMYCIN 750 MG in SODIUM CHLORIDE 0.9% 250 ML IV SCH (13:52)
[2024-10-18 17:10] LABS: Anion Gap 9.0 (3-11); Blood Urea Nitrogen 16.0 mg/dl (6-23); Calcium 9.2 mg/dl (8.6-10.3); Carbon Dioxide 24.0 mmol/L (21-32); Chloride 92.0 mmol/L (98-107); Creatinine Clr Calc Pharmacy 55.4 ml/min; Glucose 75.0 mg/dl (70-99(Fasting)); Potassium 4.1 mmol/L (3.5-5.1); Sodium 125.0 mmol/L (136-145)
--- NOTE | 2024-10-18 17:16 | Communication Note ---
Date of Service: October 18, 2024 MRSA nasal swab negative however ID currently recommending continuing vanc + Unasyn. Possible discharge tomorrow if cellulitis/labs improving. Add salt tabs for SIADH. CT head with stable hygroma, will continue Lovenox for VTE prophylaxis as high risk of this but will hold his meloxicam. US liver shows known liver mets. Discussed with oncology and has follow up with Dr Amos.
[2024-10-18] MEDS: SODIUM CHLORIDE 1 GM TABLET PO SCH (21:15)
[2024-10-19 06:17] LABS: Hematocrit (blood only) 27.3 % (42.0-52.0); Hemoglobin 9.8 g/dl (14.0-18.0); Mean Corpuscular Hemoglobin 30.1 pg (25.0-34.0); Mean Corpuscular Volume 83.7 fL (80.0-100.0); Platelet Count 216 K/uL (130-400); RDW Standard Deviation 37.4 fL (36.4-46.3); Red Blood Count 3.26 M/uL (4.70-6.10); White Blood Count 14.75 K/ul (4.8-10.8)
[2024-10-19 06:42] LABS: Alanine Aminotransferase 34.0 U/L (7-52); Alkaline Phosphatase 634.0 U/L (34-104); Anion Gap 11.0 (3-11); Bilirubin,Total 0.6 mg/dl (0.2-1.0); Blood Urea Nitrogen 16.0 mg/dl (6-23); Calcium 9.1 mg/dl (8.6-10.3); Carbon Dioxide 23.0 mmol/L (21-32); Chloride 93.0 mmol/L (98-107); Creatinine Clr Calc Pharmacy 51.5 ml/min; Glucose 72.0 mg/dl (70-99(Fasting)); Potassium 3.8 mmol/L (3.5-5.1); Sodium 127.0 mmol/L (136-145); Total Protein 5.8 gm/dl (6.0-8.3)
[2024-10-19 06:52] LABS: INR 1.2 (0.9-1.1); Prothrombin Time 13.0 Seconds (9.0-12.0)
--- NOTE | 2024-10-19 11:09 | Infectious Disease Progress Nt ---
Date of Service October 19, 2024 Assessment & Plan (1) Periorbital cellulitis: Plan Problems: #Preseptal cellulitis Micro: 10/18 BCx x2: NGTD Abx: Vanc 10/18 - present Unasyn 10/18 - present 64 yo M with HTN, recent admission 09/27-09/28/24 with diplopia and CN IV deficit, found to have hyponatremia and spiculated mass in RUL suspicious for primary bronchogenic carcinoma, as well as numerous hepatic metastases s/p liver biopsy 10/05/24 which revealed adenocarcinoma consistent with metastatic colorectal primary who presented on 10/17 with progressive R eye swelling and pain x 2-3 days. Reported seeing double, and also pain and tearing in his eye and some purulent drainage. Unable to open his R eye due to swelling. Denied fevers, chills. He was seen by ophthalmology today and sent to the ED. Admitted for preseptal cellulitis. On presentation, pt was afebrile, VSS. Labs showed WBC 14.05, Na 123, AST 67, ALT 60, alk phos 732, ESR 79. CT head with no evidence of acute intracranial pathology, new small R subdural hygroma causing 2.6 mm midline shift to left. CT orbits with IV contrast showed moderate soft tissue swelling over the R orbit and lacrimal gland and without evidence of abscess or drainable fluid co llection. Started on vanc, Unasyn. Liver US with multifocal hepatic metastasis, contracted gallbladder with mild wall thickening, no biliary ductal dilation. Discussion: With difficulty with extraocular movements, does raise concern for orbital cellulitis. However, no comment on inflammation of extraocular muscles, fat stranding on CT orbits. Will continue antibiotics and monitor for improvement. Chemosis noted on picture of R eye on 10/19. Recommendations: - Continue vanc, Unasyn and monitor for improvement - May need repeat imaging if no improvement Will continue to follow Admission and Anticipated Discharge Date Admission Date: October 18, 2024 Subjective This patient recommendation is based on a telemedicine consult request which was completed asynchronously through chart review and information provided by the primary physician. The patient was not seen or examined today. The evaluation is consultative in nature and all patient care and treatment decisions can either be accepted or rejected by the patient's primary hospital-based treating physician using their own independent medical judgment for their patient. An e-consult was performed as the video cart is not functioning. Time Spent Reviewing Chart: 11 - 20 minutes WBC remains elevated at 14.75 Afebrile Pt feels the swelling is down Results & Data Vital Signs (Past 12 Hours) Vital Signs Temp Pulse Pulse Resp BP BP Pulse Ox 10/19/24 07:49 36.5 C 109 H 17 151/81 H 95 10/19/24 06:45 95 H 10/19/24 02:44 37.1 C 104 H 18 133/72 92 O2 Del Method 10/19/24 07:49 Room Air 10/19/24 06:45 10/19/24 02:44 Room Air Laboratory Results Short CBC 10/19/24 Range/Units 05:42 WBC 14.75 H (4.8-10.8) K/ul Hgb 9.8 L (14.0-18.0) g/dl Hct 27.3 L (42.0-52.0) % Plt Count 216 (130-400) K/uL BMP 10/18/24 10/18/24 10/19/24 11:30 16:39 05:42 Sodium 126 L 125 L 127 L Potassium 4.3 4.1 3.8 Chloride 92 L 92 L 93 L Carbon Dioxide 25 24 23 BUN 18 16 16 Creatinine 1.03 1.07 1.15 Glucose 71 75 72 Calcium 9.5 9.2 9.1 Liver Function 10/19/24 Range/Units 05:42 Total Bilirubin 0.6 (0.2-1.0) mg/dl Direct Bilirubin 0.2 (0-0.2) mg/dl AST 40 H (13-39) U/L ALT 34 (7-52) U/L Alkaline Phosphatase 634 H (34-104) U/L Albumin 2.4 L (3.4-5.0) gm/dl
--- NOTE | 2024-10-19 11:27 | Hospitalist Progress Note ---
Date of Service October 19, 2024 Assessment & Plan (1) Periorbital cellulitis: (2) Hyponatremia: (3) Hypertension: (4) Metastatic cancer: (5) Sepsis: (6) SIADH (syndrome of inappropriate ADH production): Plan 64yo male with recently diagnosed malignancy, likely metastatic colon adenocarcinoma presenting with pain, swelling of right eye as well as hyponatremia #Sepsis / periorbital cellulitis - present on admission. Patient initially tachycardic in the ER with elevated WBC count of 14.05. Did become febrile in the ER. Blood cultures negative at 24 hours Chemosis now present is concerning for orbital cellulitis and may need to repeat orbital scan and transfer for ophthalmology evaluation if not improving Repeat CRP tomorrow, pending clinical course will also trend procalcitonin q2d Appreciate ID recommendations (discussed care over [employer]) - will continue on Unasyn and vancomycin #Hyponatremia Suspected SIADH, improving with fluid restriction 1.5L and NaCl 1g tabs BID #Hygroma - CT of the head revealed a new small right subdural hygroma causing a 2.6mm of midline shift to the left. This was discussed extensively between ER attending and Neurosurgery - thought that patient's symptoms are not secondary to this hygroma. Thought that the hygroma at this time is of no surgical or clinical significance. This is new since September 27 scan but appears stable on repeat imaging. Will continue on Lovenox currently. No falls per patient since September 27. 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 Will only re-image if patient's neurological status changes -If persistent hygroma may need neurosurgical followup outpatient #Hypertension - blood pressure appropriate -Amlodipine 5mg po daily -Monitor #Insomnia -Trazodone 50mg po qHS #History of EtOH use - former -Continue Thiamine, Folic Acid and MVI daily VTE Prophylaxis - Lovenox 40mg SQ daily Disposition - stable for downgrade to med/surg Admission and Anticipated Discharge Date Admission Date: October 18, 2024 Subjective He feels the swelling is down. No new changes in his vision. No pain or limitation with eye movement. No fever or chills overnight. Physical Exam 2 Eyes: normal visual maynard by confrontation (and acuity), + conjunctival abnormality (right eye chemosis present (see pictures)) and EOM intact bilaterally (no change to intermittent diplopia present for last month) Respiratory: normal respiratory effort, lungs clear to auscultation Cardiovascular: Rate/Rhythm: regular rhythm and + tachycardic Gastrointestinal (Abdomen): normal bowel sounds, soft, nontender, no hepatosplenomegaly Skin: Chemosis present on right eye with periorbital erythema and swelling Results & Data Results & Data Vital Signs (Past 12 Hours) Vital Signs Temp Pulse Pulse Resp BP BP Pulse Ox 10/19/24 07:49 36.5 C 109 H 17 151/81 H 95 10/19/24 06:45 95 H 10/19/24 02:44 37.1 C 104 H 18 133/72 92 O2 Del Method 10/19/24 07:49 Room Air 10/19/24 06:45 10/19/24 02:44 Room Air PG Care Time/CCT Total # of Minutes Spent Total Time Spent with Patient: Total time spent is greater than 50% in coordination of care (as documented) at patient's floor/unit and/or counseling patient: Coding Level of Care Code 53233 SUB INP/OBS CARE 3/50MIN Diagnoses Periorbital cellulitis L03.213 Hyponatremia E87.1 Hypertension I10 Metastatic cancer C79.9 Sepsis A41.9 SIADH (syndrome of inappropriate ADH production) E22.2
[2024-10-20] MEDS: MELOXICAM 7.5 MG TAB PO SCH (08:30)
[2024-10-20 08:46] LABS: Hematocrit (blood only) 27.5 % (42.0-52.0); Hemoglobin 9.9 g/dl (14.0-18.0); Immature Granulocytes # (auto) 0.62 K/uL (0.01-0.20); Immature Granulocytes % (auto) 4.2 %; Mean Corpuscular Hemoglobin 30.1 pg (25.0-34.0); Mean Corpuscular Volume 83.6 fL (80.0-100.0); Platelet Count 224 K/uL (130-400); RDW Standard Deviation 38.0 fL (36.4-46.3); Red Blood Count 3.29 M/uL (4.70-6.10); White Blood Count 14.92 K/ul (4.8-10.8)
[2024-10-20 08:56] LABS: Anion Gap 11.0 (3-11); Blood Urea Nitrogen 14.0 mg/dl (6-23); Calcium 8.7 mg/dl (8.6-10.3); Carbon Dioxide 20.0 mmol/L (21-32); Chloride 97.0 mmol/L (98-107); Creatinine Clr Calc Pharmacy 57.0 ml/min; Glucose 75.0 mg/dl (70-99(Fasting)); Potassium 3.4 mmol/L (3.5-5.1); Sodium 128.0 mmol/L (136-145)
--- NOTE | 2024-10-20 09:28 | Pharmacy Report ---
Pharmacy PK ABX Note - Date of Service October 20, 2024 - Assessment and Plan Assessment 10/20: * Random vancomycin level this AM was ~8 mcg/ml - will increase vancomycin dosing to maintain AUC/HARI 400-600. Will increase to vancomycin 1 gm iv q 12 hours starting now. Blood cultures are negative 10/18: * 64 year old M receiving Unasyn/vancomycin for treatment of periorbital cellulitis. Pertinent microbiologic data includes: blood cultures pending. Plan Vancomycin * Increase to 1gm iv q 12 hours * ID following Pharmacy will continue to follow and will adjust dose/frequency as necessary. Thank you. Pharmacy has transitioned to AUC monitoring for vancomycin. AUC/HARI is the preferred PK/PD target and is associated with decreased risk of nephrotoxicity compared to traditional trough targets.
[2024-10-20] MEDS: VANCOMYCIN HCL 1,000 MG in SODIUM CHLORIDE 0.9% 250 ML IV SCH (10:00)
[2024-10-20] MEDS: OPTIRAY 320 125ml IV ONE (11:07)
--- NOTE | 2024-10-20 11:29 | Infectious Disease Progress Nt ---
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 Reported seeing double, and also pain and tearing in his eye and some purulent drainage. Unable to open his R eye due to swelling. Denied fevers, chills. He was seen by ophthalmology today and sent to the ED. Admitted for preseptal cellulitis. On presentation, pt was afebrile, VSS. Labs showed WBC 14.05, Na 123, AST 67, ALT 60, alk phos 732, ESR 79. CT head with no evidence of acute intracranial pathology, new small R subdural hygroma causing 2.6 mm midline shift to left. CT orbits with IV contrast showed moderate soft tissue swelling over the R orbit and lacrimal gland and without evidence of abscess or drainable fluid co llection. Started on vanc, Unasyn. Liver US with multifocal hepatic metastasis, contracted gallbladder with mild wall thickening, no biliary ductal dilation. Discussion: Pt felt there was some improvement in swelling 10/19. On 10/20, pt still unable to open R eye. Fever curve improved--last febrile 10/18 AM. Continues with leukocytosis, but there may be a chronic component as pt had leukocytosis to ~13 in mid-September as well, perhaps related to malignancy? Repeat CT orbits done 10/20 due to persistent swelling and leukocytosis--showed persistent R periorbital/preseptal cellulitis without discrete mass or drainable fluid collection, no definite post septal inflammatory changes. Recommendations: - Continue vanc, Unasyn and monitor for improvement - If pt continues to improve, can transition to doxycycline 100 mg PO BID and amox/clav 875 mg PO BID to complete a total 7-10 day course (day 1 on 10/18) Please note that ID does not round or write notes over the weekend. If questions or concerns arise, please contact the Infectious Disease Call Center and ask to speak with the covering ID physician. Admission and Anticipated Discharge Date Admission Date: October 19, 2024 Subjective This patient recommendation is based on a telemedicine consult request which was completed asynchronously through chart review and information provided by the primary physician. The patient was not seen or examined today. The evaluation is consultative in nature and all patient care and treatment decisions can either be accepted or rejected by the patient's primary hospital-based treating physician using their own independent medical judgment for their patient. An e-consult was performed as the video cart is not functioning. Time Spent Reviewing Chart: 11 - 20 minutes Still unable to open his R eye WBC remains elevated at 14.92 Afebrile Results & Data Vital Signs (Past 12 Hours) Vital Signs Temp Pulse Resp BP Pulse Ox O2 Del Method 10/20/24 07:18 36.8 C 106 H 17 129/68 92 Room Air Diagnostic Findings Orbit CT 10/20/24 10:17 CT orbit BI wo/w con HISTORY: 64 years-old Male R preseptal cellulitls, cannot raise eyelid follow- up study in patient with right periorbital cellulitis COMPARISON: PET CT 10/11/2024, CT ORBIT October 17, 2024, head CT October 18, 2024. TECHNIQUE: Multiple axial CT images of the orbits were obtained with and without IV contrast. A dose lowering technique was used consistent with the principals of MICKEYRA. FINDINGS: Mild right periorbital subcutaneous edema with increased enhancement redemonstrated. No definite post septal inflammatory changes, fluid collections or mass lesions identified. Normal appearance of the extraocular musculature and bilateral optic nerves. The edema is again noted extending along the superior ma rgin of the orbit within the extraconal space with mild enlargement and increased enhancement of the lacrimal gland. Partially imaged subdural hygroma versus low-density subdural hematoma on the right cerebral convexity measuring up to 7 mm, previously 10 mm midline shift again noted. Osseous heterogeneity of the clivus demonstrating increased tracer uptake on the prior PET/CT which may represent underlying osseous metastasis. Moderate to severe mucosal thickening of the ethmoid and sphenoid sinuses. IMPRESSION: 1. Persistent right periorbital/preseptal cellulitis without discrete mass or drainable fluid collection. 2. No definite post septal inflammatory changes. 3. Osseous metastasis better seen on prior PET/CT. 4. Partially imaged small right-sided subdural hygroma versus low density subdural hematoma, better evaluated on the 10/18/[address] ACT 112: Negative or not required by law. The above report was generated using voice recognition software. It may contain grammatical, syntax or spelling errors. Electronically signed by: Francisco Mcneill M.D. 10/20/2024 11:39 AM Chest CTA 10/20/24 10:18 CT ANGIOGRAM OF THE CHEST CLINICAL HISTORY: Right upper lobe lung lesion. Hepatic metastatic disease. COMPARISON STUDY: Chest CT dated 09/27/2024. PET CT dated 10/11/2024. TECHNIQUE: Following the IV administration of 118 cc of Optiray 320, CT angiogram of the chest was performed from the upper abdomen to the thoracic inlet utilizing the pulmonary embolus protocol. Images are reviewed in the axial, sagittal, and coronal planes. 3-D MIPS images are created and assessed. IV contrast was administered without complication. A dose lowering technique was utilized adhering to the principles of ALARA. CT DOSE: 1698.24 mGy.cm FINDINGS: Thyroid: Imaged portions of the thyroid gland are normal in size and attenuation. Thoracic aorta: There is atherosclerotic calcification of the thoracic aorta, which is normal in caliber and demonstrates standard 3-vessel arch anatomy. No dissection is seen. Pulmonary vasculature: The pulmonary trunk is normal in caliber. There are no filling defects identified in main, lobar, or segmental pulmonary branches to suggest pulmonary embolus. Heart: The heart is normal in size noting a small pericardial effusion. Lungs and pleural spaces: Emphysematous change is noted. A 1.8 x 2.2 x 1.3 cm spiculated right upper lobe pulmonary lesion is again seen on image #171. There are small pleural effusions with dependent atelectasis. No airspace consolidation is seen typical for pneumonia. The trachea and central airways are clear. Mediastinum: There is no mediastinal lymphadenopathy. Shira: Clear. Axillae: There is no axillary lymphadenopathy. Upper abdomen: Again seen is evidence of multifocal hepatic metastatic disease. A conglomerate left lobe hepatic lesion on image #18 measures up to 6.3 cm in length. This is likely similar to recent prior examinations. There are patho logically enlarged retrocrural and retroperitoneal lymph nodes. A left retrocrural node on image #22 measures 1.2 x 1.0 cm and a left para-aortic node on image #12 measures up to 1.1 cm. A pericaval node on image #21 measures 2.8 x 1.4 cm. There are also enlarged lymph nodes in the pedro hepatis. Skeletal structures: There is significant paravertebral soft tissue thickening or edema at T12, which has significantly increased from the 10/11/2024 examination. The underlying bone is heterogeneous and this may be related to bony metastatic disease. There is likely a metastatic lesion in the inferior right scapula on image #166 and the anterior left 6th rib on image #98. Metastatic bony lesions are difficult to see by CT but were appreciated on PET. IMPRESSION: 1. There is no evidence of pulmonary embolus in the main, lobar, or segmental pulmonary arteries. 2. Emphysema. 3. Small pleural effusions are new from previous. 4. There is no airspace consolidation typical for pneumonia. 5. A 2.2 cm spiculated nodule in the right upper lobe is similar to previous. A bronchogenic neoplasm remains the diagnosis of exclusion. 6. Multifocal hepatic metastatic disease and metastatic upper abdominal lymphadenopathy is similar to previous. 7. There is significant paravertebral soft tissue thickening or edema at T12 which has increased from the 10/11/2024 PET examination. The underlying bone appears heterogeneous, and this likely represents bony metastatic disease (multifocal bony metastatic disease was identified on PET). In the appropriate clinical setting an infectious process would be impossible to exclude and clinical correlation will be essential. If warranted this could be further assessed with a contrast-enhanced MRI of the thoracic spine. 8. Additional findings as above. ACT 112: Negative or not required by law. Electronically signed by: Paul Barbosa M.D. 10/20/2024 11:57 AM
--- NOTE | 2024-10-20 11:40 | CT Scan Report ---
CT orbit BI wo/w con HISTORY: 64 years-old Male R preseptal cellulitls, cannot raise eyelid follow-up study in patient wi th right periorbital cellulitis COMPARISON: PET CT 10/11/2024, CT ORBIT October 17, 2024, head CT October 18, 2024. TECHNIQUE: Multiple axial CT images of the orbits were obtained with and without IV contrast. A dose lowering technique was used consistent with the principals of ABBI. FINDINGS: Mild right periorbital subcutaneous edema with increased enhancement redemonstrated. No definite post septal inflammatory changes, fluid collections or mass lesions identified. Normal appearance of the extraocular musculature and bilateral optic nerves. The edema is again noted extending along the supe rior margin of the orbit within the extraconal space with mild enlargement and increased enhancement of the lacrimal gland. Partially imaged subdural hygroma versus low-density subdural hematoma on the right cerebral convexit y measuring up to 7 mm, previously 10 mm midline shift again noted. Osseous heterogeneity of the cliv us demonstrating increased tracer uptake on the prior PET/CT which may represent underlying osseous m etastasis. Moderate to severe mucosal thickening of the ethmoid and sphenoid sinuses. IMPRESSION: 1. Persistent right periorbital/preseptal cellulitis without discrete mass or drainable fluid collect ion. 2. No definite post septal inflammatory changes. 3. Osseous metastasis better seen on prior PET/CT. 4. Partially imaged small right-sided subdural hygroma versus low density subdural hematoma, better e valuated on the 10/18/[address] ACT 112: Negative or not required by law. The above report was generated using voice recognition software. It may contain grammatical, syntax o r spelling errors. Electronically signed by: Francisco Mcneill M.D. 10/20/2024 11:39 AM
--- NOTE | 2024-10-20 11:54 | Hospitalist Progress Note ---
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 periorbital cellulitis - present on admission. Patient initially tachycardic in the ER with elevated WBC count of 14.05. Did become febrile in the ER. Blood cultures negative at 24 hours WBC still elevated at 14.92 s/p repeat CT orbit on 10/20/2024. no drainable fluid. communicated with ID. he's on vancomycin and unasyn tachycardia, f/u on CTA PE #Hyponatremia Suspected SIADH, improving with fluid restriction 1.5L and NaCl 1g tabs BID #Hygroma - CT of the head revealed a new small right subdural hygroma causing a 2.6mm of midline shift to the left. This was discussed extensively between ER attending and Neurosurgery - thought that patient's symptoms are not secondary to this hygroma. Thought that the hygroma at this time is of no surgical or clinical significance. This is new since September 27 scan but appears stable on repeat imaging. Will continue on Lovenox currently. No falls per patient since September 27. 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 Will only re-image if patient's neurological status changes -If persistent hygroma may need neurosurgical followup outpatient lung cancer prior CT scan on 09/27/2024 show spiculatd 2cm RUL nodule ?? broncogenic carcinoma ascending colon cancer with liver metastasis #Hypertension - blood pressure appropriate -Amlodipine 5mg po daily -Monitor #Insomnia -Trazodone 50mg po qHS #History of EtOH use - former -Continue Thiamine, Folic Acid and MVI daily VTE Prophylaxis - Lovenox 40mg SQ daily Disposition - stable for downgrade to med/surg Admission and Anticipated Discharge Date Admission Date: October 19, 2024 Subjective he continue to has right side ptosis plan for repeat CT orbit with contrast today WBC still elevated at 14 no fever; no chill per the patient, he has ptosis symptom since 10-12 weeks ago he's currently diagnosed with lung cancer and liver mass. tachycardia, f/u on CTA PE Review of Systems Review of Systems: Constitutional: No Weight Change, No Fever, No Chills, No Night Sweats, No Fatigue, No Malaise ENT/Mouth: + for right eye drop. no eye pressure, no pain Cardiovascular: No Chest Pain, No SOB, No PND, No Dyspnea on Exertion, No Orthopnea, Respiratory: + for lung cancer Gastrointestinal: No Nausea, No Vomiting, No Diarrhea, No Constipation, No Pain, No Heartburn, No Anorexia, No Dysphagia, No Hematochezia, No Melena, No Flatulence, No Jaundice + for liver metastasis Genitourinary: No Dysmenorrhea, No DUB, No Dyspareunia, No Dysuria, No Urinary Frequency, No Hematuria, No Urinary Incontinence, No Urgency, No Flank Pain, No Urinary Flow Changes, No Hesitancy Neuro: No Weakness, No Numbness, No Paresthesias, No Loss of Consciousness, No Syncope, No Dizziness, No Headache, No Coordination Changes, No Recent Falls Heme/Lymph: No Bruising, No Bleeding, No Transfusions History, No Lymphadenopathy Physical Exam Physical Exam: VITALS: Reviewed. WEIGHT/BMI reviewed. GEN: Healthy appearing, well-developed, NAD. -Head: NC/AT; -Eyes: + for ptosis of the right eyelid. no discharge appreciated. pupil reactive to light -Mouth and throat: MMM. Normal gums, muc zeke, palate,. Good dentition. NECK: Supple, with no masses. CV: RRR, no m/r/g. LUNGS: CTAB, no w/r/c. ABD: Soft, NT/ND, NBS, no masses or organomegaly. SKIN: Warm, well perfused. No skin rashes or abnormal lesions. MSK: No deformities, Normal gait. EXT: No clubbing, cyanosis, or edema. NEURO: AAox3 Results & Data Results & Data Vital Signs (Past 12 Hours) Vital Signs Temp Pulse Resp BP Pulse Ox O2 Del Method 10/20/24 07:18 36.8 C 106 H 17 129/68 92 Room Air Laboratory Results Laboratory Results - last 72 hr 10/17/24 10/18/24 10/18/24 19:50 04:38 04:50 WBC 14.05 H 14.22 H RBC 3.53 L 3.22 L Hgb 10.6 L 9.4 L Hct 29.6 L 26.6 L MCV 83.9 82.6 MCH 30.0 29.2 MCHC 35.8 35.3 RDW Std Deviation 38.2 38.0 RDW Coeff of Katty 12.5 12.4 Plt Count 229 205 MPV 9.9 9.6 Immature Gran % (Auto) 1.9 Neut % (Auto) 78.9 Lymph % (Auto) 10.0 Edmunds % (Auto) 6.8 Eos % (Auto) 2.1 Baso % (Auto) 0.3 Neut # (Auto) 11.09 H Lymph # (Auto) 1.41 Edmunds # (Auto) 0.95 H Eos # (Auto) 0.29 Baso # (Auto) 0.04 Immature Gran # (Auto) 0.27 H Absolute Nucleated RBC Nucleated RBC % (auto) ESR 79 H PT 13.6 H INR 1.3 H Sodium 123 L 124 L Potassium 4.3 4.0 Chloride 88 L 92 L Carbon Dioxide 25 22 Anion Gap 10 10 BUN 21 17 Creatinine 1.22 0.97 Est Cr Clr Drug Dosing 48.6 61.1 eGFR 65.79 86.63 BUN/Creatinine Ratio 17.2 17.5 Glucose 106 H 85 POC Glucose Osmolality 258 L Calcium 9.8 8.8 Phosphorus 4.0 Magnesium 1.7 Total Bilirubin 0.6 0.6 Direct Bilirubin 0.2 AST 67 H 52 H ALT 60 H 46 Alkaline Phosphatase 732 H 646 H C-Reactive Protein 45.54 H Total Protein 6.8 5.9 L Albumin 2.8 L 2.5 L Globulin 4.0 Albumin/Globulin Ratio 0.7 L Procalcitonin Urine Osmolality 302 L Ur Random Creatinine 38.9 Ur Random Sodium 33 Nasal Screen MRSA (PCR) Random Vancomycin 10/18/24 10/18/24 10/18/24 10:26 11:30 12:54 WBC RBC Hgb Hct MCV MCH MCHC RDW Std Deviation RDW Coeff of Katty Plt Count MPV Immature Gran % (Auto) Neut % (Auto) Lymph % (Auto) Edmunds % (Auto) Eos % (Auto) Baso % (Auto) Neut # (Auto) Lymph # (Auto) Edmunds # (Auto) Eos # (Auto) Baso # (Auto) Immature Gran # (Auto) Absolute Nucleated RBC Nucleated RBC % (auto) ESR PT INR Sodium 126 L Potassium 4.3 Chloride 92 L Carbon Dioxide 25 Anion Gap 9 BUN 18 Creatinine 1.03 Est Cr Clr Drug Dosing 57.5 eGFR 80.61 BUN/Creatinine Ratio 17.5 Glucose 71 POC Glucose 87 Osmolality Calcium 9.5 Phosphorus Magnesium Total Bilirubin Direct Bilirubin AST ALT Alkaline Phosphatase C-Reactive Protein Total Protein Albumin Globulin Albumin/Globulin Ratio Procalcitonin Urine Osmolality Ur Random Creatinine Ur Random Sodium Nasal Screen MRSA (PCR) Negative Random Vancomycin 10/18/24 10/19/24 10/20/24 16:39 05:42 08:21 WBC 14.75 H 14.92 H RBC 3.26 L 3.29 L Hgb 9.8 L 9.9 L Hct 27.3 L 27.5 L MCV 83.7 83.6 MCH 30.1 30.1 MCHC 35.9 36.0 RDW Std Deviation 37.4 38.0 RDW Coeff of Katty 12.3 12.5 Plt Count 216 224 MPV 9.6 9.8 Immature Gran % (Auto) 4.2 Neut % (Auto) 71.1 Lymph % (Auto) 14.0 Edmunds % (Auto) 6.4 Eos % (Auto) 3.8 Baso % (Auto) 0.5 Neut # (Auto) 10.62 H Lymph # (Auto) 2.09 Edmunds # (Auto) 0.95 H Eos # (Auto) 0.56 H Baso # (Auto) 0.08 Immature Gran # (Auto) 0.62 H Absolute Nucleated RBC 0.02 Nucleated RBC % (auto) 0.1 ESR PT 13.0 H INR 1.2 H Sodium 125 L 127 L 128 L Potassium 4.1 3.8 3.4 L Chloride 92 L 93 L 97 L Carbon Dioxide 24 23 20 L Anion Gap 9 11 11 BUN 16 16 14 Creatinine 1.07 1.15 1.04 Est Cr Clr Drug Dosing 55.4 51.5 57.0 eGFR 77.01 70.63 79.68 BUN/Creatinine Ratio 15.0 13.9 13.5 Glucose 75 72 75 POC Glucose Osmolality Calcium 9.2 9.1 8.7 Phosphorus Magnesium Total Bilirubin 0.6 Direct Bilirubin 0.2 AST 40 H ALT 34 Alkaline Phosphatase 634 H C-Reactive Protein 33.35 H Total Protein 5.8 L Albumin 2.4 L Globulin Albumin/Globulin Ratio Procalcitonin 3.71 H Urine Osmolality Ur Random Creatinine Ur Random Sodium Nasal Screen MRSA (PCR) Random Vancomycin 7.7 L 10/20/24 11:38 WBC RBC Hgb Hct MCV MCH MCHC RDW Std Deviation RDW Coeff of Katty Plt Count MPV Immature Gran % (Auto) Neut % (Auto) Lymph % (Auto) Edmunds % (Auto) Eos % (Auto) Baso % (Auto) Neut # (Auto) Lymph # (Auto) Edmunds # (Auto) Eos # (Auto) Baso # (Auto) Immature Gran # (Auto) Absolute Nucleated RBC Nucleated RBC % (auto) ESR PT INR Sodium Potassium Chloride Carbon Dioxide Anion Gap BUN Creatinine Est Cr Clr Drug Dosing eGFR BUN/Creatinine Ratio Glucose POC Glucose 84 Osmolality Calcium Phosphorus Magnesium Total Bilirubin Direct Bilirubin AST ALT Alkaline Phosphatase C-Reactive Protein Total Protein Albumin Globulin Albumin/Globulin Ratio Procalcitonin Urine Osmolality Ur Random Creatinine Ur Random Sodium Nasal Screen MRSA (PCR) Random Vancomycin Diagnostic Findings Liver Ultrasound 10/18/24 02:23 ABDOMINAL ULTRASOUND, RIGHT UPPER QUADRANT HISTORY: Acutely elevated LFTs abnormal LFTs. COMPARISON: PET CT 10/11/2024, ultrasound-guided biopsy of the liver 10/05/2024 FINDINGS: Pancreas: The pancreas demonstrates a normal echotexture, partially obscured by bowel gas. Liver: Multifocal hepatic metastasis redemonstrated measuring up to approximately 6.7 cm, generally stable compared to the prior PET/CT one week earlier. Pathologically enlarged periportal lymph nodes are again seen. Gallbladder: Partially contracted with mild wall thickening. No gallstones. CBD: 4 mm Right kidney: Mild pelviectasis without hydronephrosis. IMPRESSION: 1. Multifocal hepatic metastasis redemonstrated which appear similar to the PET/CT from 10/11/2024. 2. Contracted gallbladder with mild wall thickening. No cholelithiasis identified. 3. No biliary ductal dilation. ACT 112: Negative or not required by law. Electronically signed by: Francisco Mcneill M.D. 10/18/2024 1:[address] 10/20/24 10:17 CT orbit BI wo/w con HISTORY: 64 years-old Male R preseptal cellulitls, cannot raise eyelid follow- up study in patient with right periorbital cellulitis COMPARISON: PET CT 10/11/2024, CT ORBIT October 17, 2024, head CT October 18, 2024. TECHNIQUE: Multiple axial CT images of the orbits were obtained with and without IV contrast. A dose lowering technique was used consistent with the principals of ABBI. FINDINGS: Mild right periorbital subcutaneous edema with increased enhancement redemonstrated. No definite post septal inflammatory changes, fluid collections or mass lesions identified. Normal appearance of the extraocular musculature and bilateral optic nerves. The edema is again noted extending along the superior margin of the orbit within the extraconal space with mild enlargement and increased enhancement of the lacrimal gland. Partially imaged subdural hygroma versus low-density subdural hematoma on the right cerebral convexity measuring up to 7 mm, previously 10 mm midline shift again noted. Osseous heterogeneity of the clivus demonstrating increased tracer uptake on the prior PET/CT which may represent underlying osseous metastasis. Moderate to severe mucosal thickening of the ethmoid and sphenoid sinuses. IMPRESSION: 1. Persistent right periorbital/preseptal cellulitis without discrete mass or drainable fluid collection. 2. No definite post septal inflammatory changes. 3. Osseous metastasis better seen on prior PET/CT. 4. Partially imaged small right-sided subdural hygroma versus low density subdural hematoma, better evaluated on the 10/18/[address] ACT 112: Negative or not required by law. The above report was generated using voice recognition software. It may contain grammatical, syntax or spelling errors. Electronically signed by: Francisco Mcneill M.D. 10/20/2024 11:39 AM Medications Administered Current Inpatient Medications Acetaminophen (Acetaminophen 325 Mg Tab) 650 mg PO Q4H PRN PRN Reason: Pain or Fever Stop: 11/17/24 03:14 Last Admin: 10/19/24 20:19 Dose: 650 mg Albuterol (Albuterol Hfa 8 Gm Inhaler) 2 puffs INH Q4H PRN PRN Reason: shortness of breath or wheezing Stop: 11/17/24 03:49 Amlodipine Besylate (Amlodipine Besylate 5 Mg Tab) 5 mg PO QAM [facility] Stop: 11/17/24 08:59 Last Admin: 10/20/24 08:30 Dose: 5 mg Docusate Sodium (Docusate Sodium 100 Mg Cap) 100 mg PO BID PRN PRN Reason: Constipation Stop: 11/17/24 03:49 Enoxaparin Sodium (Enoxaparin Inj 40 Mg/0.4 Ml Syr) 40 mg SQ Q24H [facility] Stop: 11/17/24 05:59 Last Admin: 10/20/24 06:23 Dose: 40 mg Folic Acid (Folic Acid 1 Mg Tab) 1 mg PO QAM [facility] Stop: 11/17/24 08:59 Last Admin: 10/20/24 08:30 Dose: 1 mg Ampicillin Sodium/Sulbactam Sodium (Unasyn) 3,000 mg in 100 mls @ 200 mls/hr IV Q6H [facility] Stop: 10/25/24 05:59 Last Infusion: 10/20/24 06:53 Dose: Infused Vancomycin HCl 1,000 mg/ (Sodium Chloride) 270 mls @ 200 mls/hr IV Q12H [facility] Stop: 10/25/24 09:59 Last Infusion: 10/20/24 11:21 Dose: Infused Meloxicam (Meloxicam 7.5 Mg Tab) [facility] [place] Stop: 11/17/24 08:59 Last Admin: 10/20/24 08:30 Dose: 15 mg Miscellaneous Information (Vancomycin Consult Active) 1 each N/A UD PRN PRN Reason: Consult Stop: 11/17/24 03:49 Multivitamins (Multivitamin Tab) 1 tab PO QAM [facility] Stop: 11/17/24 08:59 Last Admin: 10/20/24 08:30 Dose: 1 tab Ondansetron HCl (Ondansetron Inj 2 Mg/Ml 2 Ml Vial) 4 mg IV Q6H PRN PRN Reason: Nausea And Vomiting Stop: 11/17/24 03:49 Sodium Chloride (Sodium Chloride 1 Gm Tablet) 1 gm PO BID [facility] Stop: 11/17/24 20:59 Last Admin: 10/20/24 08:30 Dose: 1 gm Thiamine HCl (Thiamine Hcl 100 Mg Tab) 100 mg PO QAM [facility] Stop: 11/17/24 08:59 Last Admin: 10/20/24 08:30 Dose: 100 mg Trazodone HCl (Trazodone Hcl 50 Mg Tab) 50 mg PO HS [facility] Stop: 11/17/24 20:59 Last Admin: 10/19/24 20:19 Dose: 50 mg PG Care Time/CCT Total # of Minutes Spent Total Time Spent with Patient: Total time spent is greater than 50% in coordination of care (as documented) at patient's floor/unit and/or counseling patient: Coding Level of Care Code 02743 SUB INP/OBS CARE 03/11MIN Diagnoses Periorbital cellulitis L03.213 Hyponatremia E87.1 Hypertension I10 Metastatic cancer C79.9 Sepsis A41.9 SIADH (syndrome of inappropriate ADH production) E22.2 Time Spent (min) 25
--- NOTE | 2024-10-20 11:58 | CT Scan Report ---
CT ANGIOGRAM OF THE CHEST CLINICAL HISTORY: Right upper lobe lung lesion. Hepatic metastatic disease. COMPARISON STUDY: Chest CT dated 09/27/2024. PET CT dated 10/11/2024. TECHNIQUE: Following the IV administration of 118 cc of Optiray 320, CT angiogram of the chest was pe rformed from the upper abdomen to the thoracic inlet utilizing the pulmonary embolus protocol. Images are reviewed in the axial, sagittal, and coronal planes. 3-D MIPS images are created and assessed. I V contrast was administered without complication. A dose lowering technique was utilized adhering to the principles of ALARA. CT DOSE: 1698.24 mGy.cm FINDINGS: Thyroid: Imaged portions of the thyroid gland are normal in size and attenuation. Thoracic aorta: There is atherosclerotic calcification of the thoracic aorta, which is normal in tamar faith and demonstrates standard 3-vessel arch anatomy. No dissection is seen. Pulmonary vasculature: The pulmonary trunk is normal in caliber. There are no filling defects identif ied in main, lobar, or segmental pulmonary branches to suggest pulmonary embolus. Heart: The heart is normal in size noting a small pericardial effusion. Lungs and pleural spaces: Emphysematous change is noted. A 1.8 x 2.2 x 1.3 cm spiculated right upper lobe pulmonary lesion is again seen on image #171. There are small pleural effusions with dependent a telectasis. No airspace consolidation is seen typical for pneumonia. The trachea and central airways are clear. Mediastinum: There is no mediastinal lymphadenopathy. Shira: Clear. Axillae: There is no axillary lymphadenopathy. Upper abdomen: Again seen is evidence of multifocal hepatic metastatic disease. A conglomerate left l obe hepatic lesion on image #18 measures up to 6.3 cm in length. This is likely similar to recent johanna or examinations. There are pathologically enlarged retrocrural and retroperitoneal lymph nodes. A lef t retrocrural node on image #22 measures 1.2 x 1.0 cm and a left para-aortic node on image #12 measur es up to 1.1 cm. A pericaval node on image #21 measures 2.8 x 1.4 cm. There are also enlarged lymph n odes in the pedro hepatis. Skeletal structures: There is significant paravertebral soft tissue thickening or edema at T12, which has significantly increased from the 10/11/2024 examination. The underlying bone is heterogeneous and this may be related to bony metastatic disease. There is likely a metastatic lesion in the inferior right scapula on image #166 and the anterior left 6th rib on image #98. Metastatic bony lesions are d ifficult to see by CT but were appreciated on PET. IMPRESSION: 1. There is no evidence of pulmonary embolus in the main, lobar, or segmental pulmonary arteries. 2. Emphysema. 3. Small pleural effusions are new from previous. 4. There is no airspace consolidation typical for pneumonia. 5. A 2.2 cm spiculated nodule in the right upper lobe is similar to previous. A bronchogenic neoplasm remains the diagnosis of exclusion. 6. Multifocal hepatic metastatic disease and metastatic upper abdominal lymphadenopathy is similar to previous. 7. There is significant paravertebral soft tissue thickening or edema at T12 which has increased from the 10/11/2024 PET examination. The underlying bone appears heterogeneous, and this likely represents bony metastatic disease (multifocal bony metastatic disease was identified on PET). In the appropria te clinical setting an infectious process would be impossible to exclude and clinical correlation neli l be essential. If warranted this could be further assessed with a contrast-enhanced MRI of the thora cic spine. 8. Additional findings as above. ACT 112: Negative or not required by law. Electronically signed by: Paul Barbosa M.D. 10/20/2024 11:57 AM
[2024-10-21 07:12] LABS: Hematocrit (blood only) 26.6 % (42.0-52.0); Hemoglobin 9.0 g/dl (14.0-18.0); Mean Corpuscular Hemoglobin 28.3 pg (25.0-34.0); Mean Corpuscular Volume 83.6 fL (80.0-100.0); Platelet Count 221 K/uL (130-400); RDW Standard Deviation 37.9 fL (36.4-46.3); Red Blood Count 3.18 M/uL (4.70-6.10); White Blood Count 12.85 K/ul (4.8-10.8)
[2024-10-21 07:40] LABS: Alanine Aminotransferase 29.0 U/L (7-52); Albumin Globulin Ratio 0.7 (0.9-2); Alkaline Phosphatase 646.0 U/L (34-104); Anion Gap 11.0 (3-11); Bilirubin,Total 0.5 mg/dl (0.2-1.0); Blood Urea Nitrogen 11.0 mg/dl (6-23); Calcium 8.6 mg/dl (8.6-10.3); Carbon Dioxide 21.0 mmol/L (21-32); Chloride 97.0 mmol/L (98-107); Creatinine Clr Calc Pharmacy 56.4 ml/min; Globulin 3.1 gm/dl (2.5-4.0); Glucose 87.0 mg/dl (70-99(Fasting)); Potassium 3.3 mmol/L (3.5-5.1); Sodium 129.0 mmol/L (136-145); Total Protein 5.4 gm/dl (6.0-8.3)
[2024-10-21] MEDS: ARTIFICIAL TEARS OPB SCH (09:08)
--- NOTE | 2024-10-21 15:42 | Hospitalist Progress Note ---
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 periorbital cellulitis - present on admission. Patient initially tachycardic in the ER with elevated WBC count of 14.05. Did become febrile in the ER. Blood cultures negative at 24 hours WBC downtrend from 14.9---> 12.5 s/p repeat CT orbit on 10/20/2024. no drainable fluid. communicated with ID. he's on vancomycin and unasyn started on artificial tear. tachycardia, CTA negative for PE 2.2cm spiculated right upper lobe nodule ?? bronchogenic carcinoma #Hyponatremia Suspected SIADH, improving with fluid restriction 1.5L and NaCl 1g tabs BID #Hygroma - CT of the head revealed a new small right subdural hygroma causing a 2.6mm of midline shift to the left. This was discussed extensively between ER attending and Neurosurgery - thought that patient's symptoms are not secondary to this hygroma. Thought that the hygroma at this time is of no surgical or clinical significance. This is new since September 27 scan but appears stable on repeat imaging. Will continue on Lovenox currently. No falls per patient since September 27. 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 Will only re-image if patient's neurological status changes -If persistent hygroma may need neurosurgical followup outpatient ascending colon cancer with liver metastasis #Hypertension - blood pressure appropriate -Amlodipine 5mg po daily -Monitor #Insomnia -Trazodone 50mg po qHS #History of EtOH use - former -Continue Thiamine, Folic Acid and MVI daily VTE Prophylaxis - Lovenox 40mg SQ daily Disposition - stable for downgrade to med/surg Admission and Anticipated Discharge Date Admission Date: October 19, 2024 Subjective he continue to has right side ptosis he's on IV antibiotics, still unable to voluntary open his eye repeat CT orbit negative for worsening abscess lung cancer colon cancer with liver metastasis. Physical Exam Physical Exam: VITALS: Reviewed. WEIGHT/BMI reviewed. GEN: Healthy appearing, well-developed, NAD. -Head: NC/AT; right eye ptosis; no painf ul extraocular movement normal visual field; CV: RRR, no m/r/g. LUNGS: CTAB, no w/r/c. ABD: Soft, NT/ND, NBS, no masses or organomegaly. : N/A SKIN: Warm, well perfused. No skin rashes or abnormal lesions. MSK: No deformities, Normal gait. EXT: No clubbing, cyanosis, or edema. NEURO: Ambulating with no limitations. Normal muscle strength and tone. No focal deficits. Results & Data Results & Data Vital Signs (Past 12 Hours) Vital Signs Temp Pulse Resp BP Pulse Ox O2 Del Method 10/21/24 15:18 36.3 C L 84 20 102/59 L 92 Room Air 10/21/24 14:15 Room Air 10/21/24 08:13 36.5 C 100 H 20 137/63 90 Room Air Laboratory Results Laboratory Results - last 72 hr 10/18/24 10/19/24 10/20/24 16:39 05:42 08:21 WBC 14.75 H 14.92 H RBC 3.26 L 3.29 L Hgb 9.8 L 9.9 L Hct 27.3 L 27.5 L MCV 83.7 83.6 MCH 30.1 30.1 MCHC 35.9 36.0 RDW Std Deviation 37.4 38.0 RDW Coeff of Katty 12.3 12.5 Plt Count 216 224 MPV 9.6 9.8 Immature Gran % (Auto) 4.2 Neut % (Auto) 71.1 Lymph % (Auto) 14.0 [place] % (Auto) 6.4 Eos % (Auto) 3.8 Baso % (Auto) 0.5 Neut # (Auto) 10.62 H Lymph # (Auto) 2.09 [place] # (Auto) 0.95 H Eos # (Auto) 0.56 H Baso # (Auto) 0.08 Immature Gran # (Auto) 0.62 H Absolute Nucleated RBC 0.02 Nucleated RBC % (auto) 0.1 PT 13.0 H INR 1.2 H Sodium 125 L 127 L 128 L Potassium 4.1 3.8 3.4 L Chloride 92 L 93 L 97 L Carbon Dioxide 24 23 20 L Anion Gap 9 11 11 BUN 16 16 14 Creatinine 1.07 1.15 1.04 Est Cr Clr Drug Dosing 55.4 51.5 57.0 eGFR 77.01 70.63 79.68 BUN/Creatinine Ratio 15.0 13.9 13.5 Glucose 75 72 75 POC Glucose Calcium 9.2 9.1 8.7 Total Bilirubin 0.6 Direct Bilirubin 0.2 AST 40 H ALT 34 Alkaline Phosphatase 634 H C-Reactive Protein 33.35 H Total Protein 5.8 L Albumin 2.4 L Globulin Albumin/Globulin Ratio Procalcitonin 3.71 H Random Vancomycin 7.7 L 10/20/24 10/21/24 11:38 06:47 WBC 12.85 H RBC 3.18 L Hgb 9.0 L Hct 26.6 L MCV 83.6 MCH 28.3 MCHC 33.8 RDW Std Deviation 37.9 RDW Coeff of Katty 12.5 Plt Count 221 MPV 9.4 Immature Gran % (Auto) Neut % (Auto) Lymph % (Auto) [place] % (Auto) Eos % (Auto) Baso % (Auto) Neut # (Auto) Lymph # (Auto) [place] # (Auto) Eos # (Auto) Baso # (Auto) Immature Gran # (Auto) Absolute Nucleated RBC 0.02 Nucleated RBC % (auto) 0.2 PT INR Sodium 129 L Potassium 3.3 L Chloride 97 L Carbon Dioxide 21 Anion Gap 11 BUN 11 Creatinine 1.05 Est Cr Clr Drug Dosing 56.4 eGFR 78.77 BUN/Creatinine Ratio 10.5 Glucose 87 POC Glucose 84 Calcium 8.6 Total Bilirubin 0.5 Direct Bilirubin AST 49 H ALT 29 Alkaline Phosphatase 646 H C-Reactive Protein Total Protein 5.4 L Albumin 2.3 L Globulin 3.1 Albumin/Globulin Ratio 0.7 L Procalcitonin Random Vancomycin Medications Administered Current Inpatient Medications Acetaminophen (Acetaminophen 325 Mg Tab) 650 mg PO Q4H PRN PRN Reason: Pain or Fever Stop: 11/17/24 03:14 Last Admin: 10/21/24 12:05 Dose: 650 mg Albuterol (Albuterol Hfa 8 Gm Inhaler) 2 puffs INH Q4H PRN PRN Reason: shortness of breath or wheezing Stop: 11/17/24 03:49 Amlodipine Besylate (Amlodipine Besylate 5 Mg Tab) [facility] Stop: 11/17/24 08:59 Last Admin: 10/21/24 07:47 Dose: 5 mg Artificial Tears (Artificial Tears) 1 drops OPB TID [facility] Stop: 11/20/24 08:59 Last Admin: 10/21/24 09:08 Dose: 1 drops Docusate Sodium (Docusate Sodium 100 Mg Cap) 100 mg PO BID PRN PRN Reason: Constipation Stop: 11/17/24 03:49 Enoxaparin Sodium (Enoxaparin Inj 40 Mg/0.4 Ml Syr) 40 mg SQ Q24H [facility] Stop: 11/17/24 05:59 Last Admin: 10/21/24 05:07 Dose: 40 mg Folic Acid (Folic Acid 1 Mg Tab) 1 mg PO QAM [facility] Stop: 11/17/24 08:59 Last Admin: 10/21/24 07:47 Dose: 1 mg Ampicillin Sodium/Sulbactam Sodium (Unasyn) 3,000 mg in 100 mls @ 200 mls/hr IV Q6H [facility] Stop: 10/25/24 05:59 Last Infusion: 10/21/24 12:46 Dose: Infused Vancomycin HCl 1,000 mg/ (Sodium Chloride) 270 mls @ 200 mls/hr IV Q12H [facility] Stop: 10/25/24 09:59 Last Infusion: 10/21/24 10:34 Dose: Infused Meloxicam (Meloxicam 7.5 Mg Tab) 15 mg PO QAM [facility] Stop: 11/17/24 08:59 Last Admin: 10/21/24 07:47 Dose: 15 mg Miscellaneous Information (Vancomycin Consult Active) 1 each N/A UD PRN PRN Reason: Consult Stop: 11/17/24 03:49 Multivitamins (Multivitamin Tab) 1 tab PO QAM [facility] Stop: 11/17/24 08:59 Last Admin: 10/21/24 07:46 Dose: 1 tab Ondansetron HCl (Ondansetron Inj 2 Mg/Ml 2 Ml Vial) 4 mg IV Q6H PRN PRN Reason: Nausea And Vomiting Stop: 11/17/24 03:49 Sodium Chloride (Sodium Chloride 1 Gm Tablet) 1 gm PO BID [facility] Stop: 11/17/24 20:59 Last Admin: 10/21/24 07:46 Dose: 1 gm Thiamine HCl (Thiamine Hcl 100 Mg Tab) 100 mg PO QAM [facility] Stop: 11/17/24 08:59 Last Admin: 10/21/24 07:46 Dose: 100 mg Trazodone HCl (Trazodone Hcl 50 Mg Tab) 50 mg PO HS [facility] Stop: 11/17/24 20:59 Last Admin: 10/20/24 21:12 Dose: 50 mg PG Care Time/CCT Total # of Minutes Spent Total Time Spent with Patient: Total time spent is greater than 50% in coordination of care (as documented) at patient's floor/unit and/or counseling patient: Coding Level of Care Code 25888 SUB INP/OBS CARE 03/11MIN Diagnoses Periorbital cellulitis L03.213 Hyponatremia E87.1 Hypertension I10 Metastatic cancer C79.9 Sepsis A41.9 SIADH (syndrome of inappropriate ADH production) E22.2 Time Spent (min) 25
[2024-10-22 05:41] LABS: Hematocrit (blood only) 27.8 % (42.0-52.0); Hemoglobin 9.4 g/dl (14.0-18.0); Mean Corpuscular Hemoglobin 28.3 pg (25.0-34.0); Mean Corpuscular Volume 83.7 fL (80.0-100.0); Platelet Count 246 K/uL (130-400); RDW Standard Deviation 38.7 fL (36.4-46.3); Red Blood Count 3.32 M/uL (4.70-6.10); White Blood Count 11.29 K/ul (4.8-10.8)
[2024-10-22] MEDS: DOCUSATE SODIUM 100 MG CAP PO PRN (05:48)
[2024-10-22 05:58] LABS: Alanine Aminotransferase 31.0 U/L (7-52); Albumin Globulin Ratio 0.7 (0.9-2); Alkaline Phosphatase 706.0 U/L (34-104); Anion Gap 10.0 (3-11); Bilirubin,Total 0.4 mg/dl (0.2-1.0); Blood Urea Nitrogen 10.0 mg/dl (6-23); Calcium 8.2 mg/dl (8.6-10.3); Carbon Dioxide 23.0 mmol/L (21-32); Chloride 98.0 mmol/L (98-107); Creatinine Clr Calc Pharmacy 62.4 ml/min; Globulin 3.2 gm/dl (2.5-4.0); Glucose 97.0 mg/dl (70-99(Fasting)); Potassium 3.3 mmol/L (3.5-5.1); Sodium 131.0 mmol/L (136-145); Total Protein 5.5 gm/dl (6.0-8.3)
[2024-10-22] MEDS: POTASSIUM CHLORIDE 20 MEQ/15 ML UDC PO STA (08:56)
--- NOTE | 2024-10-22 10:57 | Pharmacy Report ---
Pharmacy PK ABX Note - Date of Service October 22, 2024 - Assessment and Plan Assessment 10/22 * Random vancomycin level this AM 18.8 mcg/mL- predicts target AUC/HARI although with intermediate fit. Will continue current dose and monitor. Procalcitonin downtrending. Per ID recommendations "if pt continues to improve, can transition to doxycycline 100 mg PO BID and amox/clav 875 mg PO BID to complete a total 7-10 day course (day 1 on 10/18)" 10/20: * Random vancomycin level this AM was ~8 mcg/ml - will increase vancomycin dosing to maintain AUC/HARI 400-600. Will increase to vancomycin 1 gm iv q 12 hours starting now. Blood cultures are negative 10/18: * 64 year old M receiving Unasyn/vancomycin for treatment of periorbital cellulitis. Pertinent microbiologic data includes: blood cultures pending. Plan Vancomycin * Continue 1gm iv q 12 hours * ID following Pharmacy will continue to follow and will adjust dose/frequency as necessary. Thank you. Pharmacy has transitioned to AUC monitoring for vancomycin. AUC/HARI is the preferred PK/PD target and is associated with decreased risk of nephrotoxicity compared to traditional trough targets.
--- NOTE | 2024-10-22 12:20 | Hospitalist Progress Note ---
Date of Service October 22, 2024 Assessment & Plan (1) Periorbital cellulitis: (2) Hyponatremia: (3) Hypertension: (4) Metastatic cancer: (5) Sepsis: (6) SIADH (syndrome of inappropriate ADH production): Plan 64yo male with recently diagnosed , spiculated 2cm RUL lung nodule, malignancy, likely metastatic colon adenocarcinoma presenting with pain, swelling of right eye as well as hyponatremia prior to admission, has had 12 weeks of right eye ptosis. right periorbital cellulitis - present on admission. he on van and unasyn still has significant ptosis. spoke with [facility] ophthalmology they are deferring transfer. s/p repeat CT orbit on 10/20/2024. no drainable fluid. communicated with ID. he's on vancomycin and unasyn started on artificial tear. tachycardia, CTA negative for PE 2.2cm spiculated right upper lobe nodule ?? bronchogenic carcinoma #Hyponatremia Suspected SIADH, improving with fluid restriction 1.5L and NaCl 1g tabs BID #Hygroma - CT of the head revealed a new small right subdural hygroma causing a 2.6mm of midline shift to the left. This was discussed extensively between ER attending and Neurosurgery - thought that patient's symptoms are not secondary to this hygroma. Thought that the hygroma at this time is of no surgical or clinical significance. This is new since September 27 scan but appears stable on repeat imaging. Will continue on Lovenox currently. No falls per patient since September 27. 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 Will only re-image if patient's neurological status changes -If persistent hygroma may need neurosurgical followup outpatient ascending colon cancer with liver metastasis #Hypertension - blood pressure appropriate -Amlodipine 5mg po daily -Monitor #Insomnia -Trazodone 50mg po qHS #History of EtOH use - former -Continue Thiamine, Folic Acid and MVI daily VTE Prophylaxis - Lovenox 40mg SQ daily Disposition - stable for downgrade to med/surg Admission and Anticipated Discharge Date Admission Date: October 19, 2024 Subjective he still has right eye ptosis and inability to raise his eyelid WBC downtrend spoke with ophthalmology team at [facility] they do not believe he's indicated for transfer at this moment they recommended CTA brain and brain MRI w/wo contrast to r/o intracranial process he's on unasyn, he's on vancomycin hx of liver metastasis. ?? colon primary also found lung nodule in the RUL Physical Exam Physical Exam: VITALS: Reviewed. WEIGHT/BMI reviewed. GEN: Healthy appearing, well-developed, NAD. -Head: NC/AT; -Eyes: right eye ptosis; limited EOMI. no pupil reaction NECK: Supple, with no masses. CV: RRR, no m/r/g. LUNGS: CTAB, no w/r/c. ABD: Soft, NT/ND, NBS, no masses or organomegaly. : N/A MSK: No deformities, Normal gait. EXT: No clubbing, cyanosis, or edema. NEURO: AAOx3 Results & Data Results & Data Vital Signs (Past 12 Hours) Vital Signs Temp Pulse Resp BP Pulse Ox O2 Del Method 10/22/24 07:35 Room Air 10/22/24 07:32 37.1 C 84 17 135/68 90 Room Air Laboratory Results Laboratory Results - last 72 hr 10/20/24 10/20/24 10/21/24 08:21 11:38 06:47 WBC 14.92 H 12.85 H RBC 3.29 L 3.18 L Hgb 9.9 L 9.0 L Hct 27.5 L 26.6 L MCV 83.6 83.6 MCH 30.1 28.3 MCHC 36.0 33.8 RDW Std Deviation 38.0 37.9 RDW Coeff of Katty 12.5 12.5 Plt Count 224 221 MPV 9.8 9.4 Immature Gran % (Auto) 4.2 Neut % (Auto) 71.1 Lymph % (Auto) 14.0 [place] % (Auto) 6.4 Eos % (Auto) 3.8 Baso % (Auto) 0.5 Neut # (Auto) 10.62 H Lymph # (Auto) 2.09 [place] # (Auto) 0.95 H Eos # (Auto) 0.56 H Baso # (Auto) 0.08 Immature Gran # (Auto) 0.62 H Absolute Nucleated RBC 0.02 0.02 Nucleated RBC % (auto) 0.1 0.2 Sodium 128 L 129 L Potassium 3.4 L 3.3 L Chloride 97 L 97 L Carbon Dioxide 20 L 21 Anion Gap 11 11 BUN 14 11 Creatinine 1.04 1.05 Est Cr Clr Drug Dosing 57.0 56.4 eGFR 79.68 78.77 BUN/Creatinine Ratio 13.5 10.5 Glucose 75 87 POC Glucose 84 Calcium 8.7 8.6 Total Bilirubin 0.5 AST 49 H ALT 29 Alkaline Phosphatase 646 H C-Reactive Protein 33.35 H Total Protein 5.4 L Albumin 2.3 L Globulin 3.1 Albumin/Globulin Ratio 0.7 L Procalcitonin Random Vancomycin 7.7 L 10/22/24 10/22/24 05:26 08:23 WBC 11.29 H RBC 3.32 L Hgb 9.4 L Hct 27.8 L MCV 83.7 MCH 28.3 MCHC 33.8 RDW Std Deviation 38.7 RDW Coeff of Katty 12.8 Plt Count 246 MPV 9.3 L Immature Gran % (Auto) Neut % (Auto) Lymph % (Auto) [place] % (Auto) Eos % (Auto) Baso % (Auto) Neut # (Auto) Lymph # (Auto) [place] # (Auto) Eos # (Auto) Baso # (Auto) Immature Gran # (Auto) Absolute Nucleated RBC Nucleated RBC % (auto) Sodium 131 L Potassium 3.3 L Chloride 98 Carbon Dioxide 23 Anion Gap 10 BUN 10 Creatinine 0.95 Est Cr Clr Drug Dosing 62.4 eGFR 88.83 BUN/Creatinine Ratio 10.5 Glucose 97 POC Glucose Calcium 8.2 L Total Bilirubin 0.4 AST 49 H ALT 31 Alkaline Phosphatase 706 H C-Reactive Protein 23.15 H Total Protein 5.5 L Albumin 2.3 L Globulin 3.2 Albumin/Globulin Ratio 0.7 L Procalcitonin 1.33 H Random Vancomycin 18.8 Medications Administered Current Inpatient Medications Acetaminophen (Acetaminophen 325 Mg Tab) 650 mg PO Q4H PRN PRN Reason: Pain or Fever Stop: 11/17/24 03:14 Last Admin: 10/22/24 07:39 Dose: 650 mg Albuterol (Albuterol Hfa 8 Gm Inhaler) 2 puffs INH Q4H PRN PRN Reason: shortness of breath or wheezing Stop: 11/17/24 03:49 Amlodipine Besylate (Amlodipine Besylate 5 Mg Tab) 5 mg PO QAM [facility] Stop: 11/17/24 08:59 Last Admin: 10/22/24 08:57 Dose: 5 mg Artificial Tears (Artificial Tears) 1 drops OPB TID [facility] Stop: 11/20/24 08:59 Last Admin: 10/22/24 08:57 Dose: 1 drops Docusate Sodium (Docusate Sodium 100 Mg Cap) 100 mg PO BID PRN PRN Reason: Constipation Stop: 11/17/24 03:49 Last Admin: 10/22/24 05:48 Dose: 100 mg Enoxaparin Sodium (Enoxaparin Inj 40 Mg/0.4 Ml Syr) 40 mg SQ Q24H [facility] Stop: 11/17/24 05:59 Last Admin: 10/22/24 05:49 Dose: 40 mg Folic Acid (Folic Acid 1 Mg Tab) 1 mg PO QAM [facility] Stop: 11/17/24 08:59 Last Admin: 10/22/24 09:04 Dose: 1 mg Ampicillin Sodium/Sulbactam Sodium (Unasyn) 3,000 mg in 100 mls @ 200 mls/hr IV Q6H [facility] Stop: 10/25/24 05:59 Last Infusion: 10/22/24 06:18 Dose: Infused Vancomycin HCl 1,000 mg/ (Sodium Chloride) 270 mls @ 200 mls/hr IV Q12H [facility] Stop: 10/25/24 09:59 Last Admin: 10/22/24 11:27 Dose: 200 mls/hr Meloxicam (Meloxicam 7.5 Mg Tab) [facility] [place] Stop: 11/17/24 08:59 Last Admin: 10/22/24 08:58 Dose: 15 mg Miscellaneous Information (Vancomycin Consult Active) 1 each N/A UD PRN PRN Reason: Consult Stop: 11/17/24 03:49 Multivitamins (Multivitamin Tab) [facility] [place] Stop: 11/17/24 08:59 Last Admin: 10/22/24 08:58 Dose: 1 tab Ondansetron HCl (Ondansetron Inj 2 Mg/Ml 2 Ml Vial) 4 mg IV Q6H PRN PRN Reason: Nausea And Vomiting Stop: 11/17/24 03:49 Sodium Chloride (Sodium Chloride 1 Gm Tablet) 1 gm PO BID [facility] Stop: 11/17/24 20:59 Last Admin: 10/22/24 08:59 Dose: 1 gm Thiamine HCl (Thiamine Hcl 100 Mg Tab) 100 mg PO QAM [facility] Stop: 10/03/25 08:59 Last Admin: 10/22/24 08:59 Dose: 100 mg Trazodone HCl (Trazodone Hcl 50 Mg Tab) 50 mg PO HS [facility] Stop: 11/17/24 20:59 Last Admin: 10/21/24 20:21 Dose: 50 mg PG Care Time/CCT Total # of Minutes Spent Total Time Spent with Patient: Total time spent is greater than 50% in coordination of care (as documented) at patient's floor/unit and/or counseling patient: Coding Level of Care Code 40662 SUB INP/OBS CARE 2/35MIN Diagnoses Periorbital cellulitis L03.213 Hyponatremia E87.1 Hypertension I10 Metastatic cancer C79.9 Sepsis A41.9 SIADH (syndrome of inappropriate ADH production) E22.2 Time Spent (min) 35
[2024-10-22] MEDS: GADOBUTROL 30ML VIAL IV ONE (14:09)
[2024-10-22] MEDS: OPTIRAY 320 125ml IV ONE (15:24)
--- NOTE | 2024-10-22 15:31 | Magnetic Resonance Report ---
MRI of the brain performed with and without IV contrast History: Right eye swelling. Cancer Comparison: CT from 10/18/2024 Technique: Multiplanar T1 weighted, axial T2/FLAIR, and susceptibility images were obtained without intravenous contrast. Following intravenous gadolinium based contrast administration, axial T2 weighted, diffusion, and T1-weighted images were obtained. Findings: Heterogeneous signal abnormality and enhancement, are noted of the clivus , and involving the sella turcica.There is also some ill-defined low signal intensity abnormality asymmetrically about the right cavernous sinus, surrounding the internal carotid artery, which may represent mass and/or cavernous sinus thrombosis. There is mild enlargement of the pituitary gland, measuring 12 mm craniocaudal. A right cerebral convexity subdural collection, which was seen on prior CT, has increased in size, now measuring 17 mm in thickness, previously 7 mm. There is some leftward midline shift, of approximately 3 mm. There is no acute infarct. There is also a new smaller subdural collection which is homogeneously T2 hyperintense over the left parietal lobe involving a smaller surface area, measuring 7 mm in thickness. There is no hemosiderin staining on susceptibility weighted images throughout the brain to suggest that these represent sequelae of blood products, and may represent hygromas. Bilateral mastoid air cell effusions, left greater than right. Mild chronic microvascular ischemic changes in the white matter. There is extensiveThickening especially throughout the ethmoid air cells and the sphenoid sinuses Impression: Heterogeneous signal abnormality and enhancement of the clivus and the sella turcica, Concerning for bony metastatic disease. There is also some low T2 signal abnormality within the right aspect of the cavernous sinus, which may represent tumor and/or cavernous sinus thrombosis. There is mild enlargement of the pituitary gland, which may be related to metastatic disease, or potentially macroadenoma. Interval increase in the subdural collection overlying the right cerebral convexity, and there is additionally a new smaller collection overlying the left parietal lobe. These collections are both homogeneously hyperintense on T2 WI, and there is no hemosiderin staining to suggest that there is involvement of blood products, and favor hygromas. There is no acute infarct. Electronically signed by Pineda Locke 10-22-2024 3:31 PM
--- NOTE | 2024-10-22 16:46 | CT Scan Report ---
Exam: CT angiogram head with contrast. Reason for exam: Right eye ptosis. Rule out 3rd nerve palsy. Previous studies: MRI brain 10/22/2024; CT head 10/18/2024. FINDINGS: Intact blood flow is seen in the distal internal carotid arteries bilaterally without significant stenosis at this level. There is moderate plaquing in the right carotid siphon but again this produces a maximum of approximately 40% stenosis. Intact flow is seen in the arteries about the [place]. No stenosis or occlusion of the branches are seen. Intact flow is seen in the distal vertebral arteries to form the basilar artery with intact flow in the posterior arterial circulation. Extensive abnormal thickening is seen in the paranasal sinuses and mastoids bilaterally. The large extra-axial fluid collections, right side greater than left remain present with compressive effects on the underlying cerebral cortices. IMPRESSION: 1. Atherosclerotic plaquing of the distal right internal carotid artery without significant stenosis. 2. No evidence of invasion or significant stenosis at the level of the clivus or cavernous sinuses at this time. Electronically signed by Edwin Sinclair 10-22-2024 4:46 PM
[2024-10-22] MEDS: ONDANSETRON INJ 2 MG/ML 2 ML VIAL IV PRN (22:26)
[2024-10-23 06:26] LABS: Hematocrit (blood only) 27.3 % (42.0-52.0); Hemoglobin 9.2 g/dl (14.0-18.0); Mean Corpuscular Hemoglobin 28.3 pg (25.0-34.0); Mean Corpuscular Volume 84.0 fL (80.0-100.0); Platelet Count 263 K/uL (130-400); RDW Standard Deviation 38.5 fL (36.4-46.3); Red Blood Count 3.25 M/uL (4.70-6.10); White Blood Count 11.37 K/ul (4.8-10.8)
[2024-10-23 06:54] LABS: Alanine Aminotransferase 25.0 U/L (7-52); Albumin Globulin Ratio 0.8 (0.9-2); Alkaline Phosphatase 635.0 U/L (34-104); Anion Gap 9.0 (3-11); Bilirubin,Total 0.4 mg/dl (0.2-1.0); Blood Urea Nitrogen 8.0 mg/dl (6-23); Calcium 8.2 mg/dl (8.6-10.3); Carbon Dioxide 23.0 mmol/L (21-32); Chloride 100.0 mmol/L (98-107); Creatinine Clr Calc Pharmacy 70.6 ml/min; Globulin 3.1 gm/dl (2.5-4.0); Glucose 92.0 mg/dl (70-99(Fasting)); Potassium 3.8 mmol/L (3.5-5.1); Sodium 132.0 mmol/L (136-145); Total Protein 5.5 gm/dl (6.0-8.3)
--- NOTE | 2024-10-23 09:31 | Neurology Consultation ---
Date of Consultation October 23, 2024 Assessment & Plan (1) Subdural hygroma: History of Present Illness Attending Physician: Ann Ashley DO History of Present Illness s: pt with hepatic metastatic cancer, mri brain noted for large expanding rt subdural hygroma with ?rt cavernous sinus tumor vs thrombosis. pt currently having rt eye cellulitis tx and mild rt side headache with mild left hemiparesi s. comparing his CT head images from prior and mri from yesterday, it is rapidly expanding and has increase in size significantly within just few days. unclear etiology as pt denies head trauma. admission HPI: Mr. Cespedes is a 64yo male presenting with right eye periorbital cellulitis, diplopia. Patient with history of hypertension. He was recently admitted to [facility] 09/27 - 09/28/24 after presenting with diplopia and cranial nerve IV deficit. He was found to have hyponatremia Lh=096 as well as a spiculated mass in RUL suspicious for primary bronchogenic carcinoma. Also found to have numerous hepatic metastasis. Patient had an MRI of the brain on 09/27/24 which was NEGATIVE for infarction, lesion or metastatic disease. He was discharged home on 09/28/24. Patient had a followup visit with his PCP on 10/03/24. He had a liver biopsy performed on 10/05/24 which revealed adenocarcinoma consistent with metastatic colorectal primary. Patint has a followup appointment with [facility] scheduled for 11/[facility]24. Patient has had swelling and pain of the right eye progressive for the last 2-3 days. He reports seeing double, pain and tearing in the eye as well as some pu rulent drainage. His swelling has progressed - now patient is unable to open his right eye. He denies fever, chills, chest pain, cough, SOB, nausea, vomiting. No trauma to the eye. He was seen by Ophtho today and sent to the ER. In the ER patient febrile, tachycardic Allergies Allergy/AdvReac Type Severity Reaction Status Date / Time bee venom protein (honey bee) Allergy Severe SWELL/SOB Unverified 10/12/24 11:51 Home Medications Medication Instructions Recorded Confirmed Type acetaminophen 325 mg tablet 650 mg PO QID PRN Fever Or Pain 09/27/24 10/18/24 History albuterol sulfate 90 mcg/actuation 2 inh inhalation Q4H PRN shortness 09/28/24 10/18/24 Rx aerosol inhaler of breath or wheezing #8.5 grams amlodipine 5 mg tablet 5 mg PO QAM #30 tabs 09/28/24 10/18/24 Rx folic acid 1 mg tablet 1 mg PO QAM #30 tabs 09/28/24 10/18/24 Rx multivitamin with folic acid 400 1 tab PO QAM #30 tabs 09/28/24 10/18/24 Rx mcg tablet (Daily-Susan (with folic acid)) thiamine HCl (vitamin B1) 100 mg 100 mg PO QAM #30 tabs 09/28/24 10/18/24 Rx tablet meloxicam 15 mg tablet 15 mg PO QAM 10/18/24 10/18/24 History trazodone 50 mg tablet 50 mg PO HS 10/18/24 10/18/24 History Patient History Surgical History History of bladder surgery S/P hemorrhoidectomy Family History Father , from [place] age 62 Myocardial infarction Mother , age 85 of CHF Coronary heart disease Sister Coronary heart disease "clogged arteries" Denies family history of Ovarian cancer Prostate cancer Breast cancer Colorectal cancer Social History Smoking Status: Former smoker Tobacco Type: Cigarettes Age Started Using Tobacco: 13; Age Quit Using Tobacco: 64; packs per day: 1; Cigarettes Per Day: 12-20; Second Hand Exposure: Yes; Do You Dip or Chew Tobacco: No; Hx Alcohol Use: No (Quit 1 month ago) Hx Substance Use: No Preferred Language: Vietnamese Communication Ability: Effective Hearing Ability: Normal Package Line Relief Operator Required: No Beliefs That Will Affect Care: None marital status: Single Current Living Situation: Alone current occupational status: employed 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 Full EOM, symmetric face, midline T/U/P Motor: No abnormal movements, normal tone, 5/5 t/o rt side. LUE: 3/5 elbow extension, 4/5 elbow flexion, 4+/5 abduction of shoulder. 5/5 distal hand. LLE: 4+/5 proximal and knee extension, 5/5 distal plantarflexion. Sens: intact to touch b/l grossly Coord: intact FNT b/l DTR: 1+ sym b/l Impression: 64 yo male with metastatic hepatic cancer with rt eye cellulitis noted for large rapidly expanding subdural hygroma on rt side with midline shift and sign of left side hemiparesis. Unclear etiology for the expanding hygroma, but likely infection, metastatic to his meninges likely contributing. Recommendations: needs immediate neurosurgical intervention and evaluation for the expanding hygroma. discussed with hospitalist to transfer pt to [place] (as pt desires). pt already on lovenox, no need for additional tx for ?cavernous thrombosis that is less likely. Chart reviewed I have spent more than 50% educating patient about potential diagnosis and neurological evaluation and coordinating care with patient's treatment team. Total time spent (including chart review and coordination of care): 60 min (this includes chart review). Results & Data Vital Signs (Past 12 Hours) Vital Signs Temp Pulse Resp BP BP Pulse Ox O2 Del Method 10/23/24 07:35 36.4 C L 80 16 137/77 93 Room Air 10/22/24 23:57 36.3 C L 86 16 113/66 95 Room Air PG Care Time/CCT Total # of Minutes Spent Total Time Spent with Patient: Total time spent is greater than 50% in coordination of care (as documented) at patient's floor/unit and/or counseling patient: Coding Level of Care Code 08996 IN/OBS CONSULT LVL 4,60M Diagnoses Subdural hygroma G96.08
[2024-10-23 11:45] VITALS: BP 137/75; PULSE 86; RESP 18; TEMP 97.3; O2SAT 92
--- NOTE | 2024-10-23 12:02 | History & Physical Report ---
Date of Service October 23, 2024 Assessment & Plan (1) Periorbital cellulitis: (2) Hyponatremia: (3) Hypertension: (4) Metastatic cancer: (5) Sepsis: (6) SIADH (syndrome of inappropriate ADH production): Plan 64yo male with recently diagnosed , spiculated 2cm RUL lung nodule, malignancy, likely metastatic colon adenocarcinoma presenting with pain, swelling of right eye as well as hyponatremia prior to admission, has had 12 weeks of right eye ptosis. right periorbital cellulitis - present on admission. he on van and unasyn still has significant ptosis. spoke with [facility] ophthalmology they are deferring transfer. s/p repeat CT orbit on 10/20/2024. no drainable fluid. communicated with ID. he's on vancomycin and unasyn started on artificial tear. tachycardia, CTA negative for PE 2.2cm spiculated right upper lobe nodule ?? bronchogenic carcinoma #Hyponatremia Suspected SIADH, improving with fluid restriction 1.5L and NaCl 1g tabs BID #Hygroma - CT of the head revealed a new small right subdural hygroma causing a 2.6mm of midline shift to the left. This was discussed extensively between ER attending and Neurosurgery - thought that patient's symptoms are not secondary to this hygroma. Thought that the hygroma at this time is of no surgical or clinical significance. This is new since September 27 scan but appears stable on repeat imaging. Will continue on Lovenox currently. No falls per patient since September 27. 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 Will only re-image if patient's neurological status changes -If persistent hygroma may need neurosurgical followup outpatient ascending colon cancer with liver metastasis #Hypertension - blood pressure appropriate -Amlodipine 5mg po daily -Monitor #Insomnia -Trazodone 50mg po qHS #History of EtOH use - former -Continue Thiamine, Folic Acid and MVI daily VTE Prophylaxis - Lovenox 40mg SQ daily Disposition - stable for downgrade to med/surg Admission and Anticipated Discharge Date Admission Date: October 19, 2024 History of Present Illness Chief Complaint: right eye ptosis, right periorbital cellulitis worsening gyroma ?? cavernous sinus thrombosis 2 months hx of double vision one month history of right side weakness Primary Care Provider: Jm Whelan, Allergies Allergy/AdvReac Type Severity Reaction Status Date / Time bee venom protein (honey bee) Allergy Severe SWELL/SOB Unverified 10/12/24 11:51 Home Medications Medication Instructions Recorded Confirmed Type acetaminophen 325 mg tablet 650 mg PO QID PRN Fever Or Pain 09/27/24 10/18/24 History albuterol sulfate 90 mcg/actuation 2 inh inhalation Q4H PRN shortness 09/28/24 10/18/24 Rx aerosol inhaler of breath or wheezing #8.5 grams amlodipine 5 mg tablet 5 mg PO QAM #30 tabs 09/28/24 10/18/24 Rx folic acid 1 mg tablet 1 mg PO QAM #30 tabs 09/28/24 10/18/24 Rx multivitamin with folic acid 400 1 tab PO QAM #30 tabs 09/28/24 10/18/24 Rx mcg tablet (Daily-Susan (with folic acid)) thiamine HCl (vitamin B1) 100 mg 100 mg PO QAM #30 tabs 09/28/24 10/18/24 Rx tablet meloxicam 15 mg tablet 15 mg PO QAM 10/18/24 10/18/24 History trazodone 50 mg tablet 50 mg PO HS 10/18/24 10/18/24 History sodium chloride 1,000 mg soluble 1,000 mg PO BID 30 days #60 tabs 10/23/24 Rx tablet Past Med/Surg History Problem List (Updated 10/23/24 @ 09:31 by Angelo Ramirez MD) Subdural hygroma SIADH (syndrome of inappropriate ADH production) Sepsis Periorbital cellulitis (Acute) Hyponatremia (Acute) Visual changes (Acute) Eye swelling, right (Acute) Insomnia Hypertension Carotid stenosis, left Lung nodule Wheezing Current smoker Hyponatremia (Acute) Headache (Acute) Diplopia (Acute) Metastatic cancer (Acute) Umbilical hernia Alcohol use Nicotine use No known health problems Surgical History History of bladder surgery S/P hemorrhoidectomy Family History Father , from [place] age 62 Myocardial infarction Mother , age 85 of CHF Coronary heart disease Sister Coronary heart disease "clogged arteries" Denies family history of Ovarian cancer Prostate cancer Breast cancer Colorectal cancer Social History Smoking Status: Former smoker Tobacco Type: Cigarettes Age Started Using Tobacco: 13; Age Quit Using Tobacco: 64; packs per day: 1; Cigarettes Per Day: 12-20; Second Hand Exposure: Yes; Do You Dip or Chew Tobacco: No; Hx Alcohol Use: No (Quit 1 month ago) Hx Substance Use: No Preferred Language: Somali Communication Ability: Effective Hearing Ability: Normal Sink Maker Required: No Beliefs That Will Affect Care: None marital status: Single Current Living Situation: Alone current occupational status: employed 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 no eye pressure, no pain Cardiovascular: No Chest Pain, No SOB, No PND, No Dyspnea on Exertion, No Orthopnea, Respiratory: + for lung cancer Gastrointestinal: No Nausea, No Vomiting, No Diarrhea, No Constipation, No Pain, No Heartburn, No Anorexia, No Dysphagia, No Hematochezia, No Melena, No Flatulence, No Jaundice + for liver metastasis Genitourinary: No Dysmenorrhea, No DUB, No Dyspareunia, No Dysuria, No Urinary Frequency, No Hematuria, No Urinary Incontinence, No Urgency, No Flank Pain, No Urinary Flow Changes, No Hesitancy Neuro: No Weakness, No Numbness, No Paresthesias, No Loss of Consciousness, No Syncope, No Dizziness, No Headache, No Coordination Changes, No Recent Falls Heme/Lymph: No Bruising, No Bleeding, No Transfusions History, No Lymphadenopathy Results & Data Results & Data Vital Signs (Past 12 Hours) Vital Signs Temp Pulse Resp BP Pulse Ox O2 Del Method 10/23/24 11:44 36.3 C L 86 18 137/75 92 Room Air 10/23/24 07:35 36.4 C L 80 16 137/77 93 Room Air Code Status & VTE Plan VTE Prophylaxis Plan VTE Prophylaxis will be ordered: Yes PG Care Time/CCT Total # of Minutes Spent Total Time Spent with Patient: Total time spent is greater than 50% in coordination of care (as documented) at patient's floor/unit and/or counseling patient: Coding Diagnoses Periorbital cellulitis L03.213 Hyponatremia E87.1 Hypertension I10 Metastatic cancer C79.9 Sepsis A41.9 SIADH (syndrome of inappropriate ADH production) E22.2
--- NOTE | 2024-10-23 12:22 | Discharge Summary ---
Discharge Summary Date of Service October 23, 2024 Principal Dx & Hospital Course #1 = Principal Diagnosis (1) Periorbital cellulitis: Ham Cespedes is a 64 yo male with PMH Of newly diagnosed metastatic cancer (colon primary), carotid stenosis lung nodules (RUL), hypertension, chronic alcohol use disorder he has asbestos exposure and smokef 50 pack year, quitted in 09/29/2024. in september 2024. he's was having left side weakness and headache and double vision, and was having UTI symptoms. he seen optometry (Dr. Karime Foster) evaluated on 09/26/2024. he's came to our ED on Sep 27, 2024, found to have multiple liver metastasis, urinary bladder wall thickening, and small bowel wall thickening. he's was admitted for UTI, hyponatremia, and dc on 09/28/2024 he s/p PET scan (10/11/2024) and found circumferential wall thickening with FDG uptake and ascending colon extend for 3.5cm. extensive FDG avid hepatic, skeletal, and shaq metastatsis. and 1.9cm avid irregular RUL nodules. on oct 18, 2024, he's return to our hospital with worsening right eye ptosis for one month his CT orbit concern for perorbital cellulitis and started on on van and unasyn. his WBC on admission was 14.5. despite 3-4 days of unasyn and vancomycin, his RIGHT eye ptosis persist, CT orbit was repeat and negative for drainage abscess or worsening cellulitis, artifical tear was started. on 10/18/2024, found low attenuation extra axial fluid collection along the right convexity, repeat CT chest in 24 hours show either acute subdural hygroma versus subdural hematoma. he was on lovenox 40mg subQ given his high risk of DVT. on 10/22/2024, his right eye ptosis failed to improved, he mentioned double vision. spoke with opthamology at [facility], they declined transfer on 10/22/2024 brain MRI w/wo contrast was performed to r/o intracranial abscess, which found interval increased in subdural collection in the right cerebral convexity and new smaller collection overlying the left parietal lobe. his lovenox was held and he was seen by neurology, noted LUE 3/5 elbow extension, 4/5 elbow flexion, 4/5 abduction of shoulder, 5/5 distal hand he is a poor historian, spoke with his sister, 4 weeks history of left livia weakness, recurrent UTI, and 8 weeks history of double vision recommended transfer to [place] [facility]. he will need to remained on unasyn and vancomycin he should has othamology evaluatio nof right side ptosis while here at [facility] his last dose of lovenox was 10/23/2024 6am he has meloxicam this morning he will need neurosurgery clearance about when to restarted anticoagulation we hold his meloxicam (2) Hyponatremia: (3) Hypertension: (4) Metastatic cancer: (5) Sepsis: (6) SIADH (syndrome of inappropriate ADH production): Plan 64yo male with recently diagnosed , spiculated 2cm RUL lung nodule, malignancy, likely metastatic colon adenocarcinoma presenting with pain, swelling of right eye as well as hyponatremia prior to admission, has had 12 weeks of right eye ptosis. right periorbital cellulitis - present on admission. he on van and unasyn still has significant ptosis. spoke with [facility] ophthalmology they are deferring transfer. s/p repeat CT orbit on 10/20/2024. no drainable fluid. communicated with ID. he's on vancomycin and unasyn started on artificial tear. tachycardia, CTA negative for PE 2.2cm spiculated right upper lobe nodule ?? bronchogenic carcinoma #Hyponatremia Suspected SIADH, improving with fluid restriction 1.5L and NaCl 1g tabs BID #Hygroma - CT of the head revealed a new small right subdural hygroma causing a 2.6mm of midline shift to the left. This was discussed extensively between ER attending and Neurosurgery - thought that patient's symptoms are not secondary to this hygroma. Thought that the hygroma at this time is of no surgical or clinical significance. This is new since September 27 scan but appears stable on repeat imaging. Will continue on Lovenox currently. No falls per patient since September 27. 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 Will only re-image if patient's neurological status changes -If persistent hygroma may need neurosurgical followup outpatient ascending colon cancer with liver metastasis #Hypertension - blood pressure appropriate -Amlodipine 5mg po daily -Monitor #Insomnia -Trazodone 50mg po qHS #History of EtOH use - former -Continue Thiamine, Folic Acid and MVI daily VTE Prophylaxis - Lovenox 40mg SQ daily Disposition - stable for downgrade to med/surg Notes For Next Care Provider c/w sourav and vancomycin Medication Changes From Visit hold lovenox Admission HPI Per Admitting Provider Ham Cespedes is a 64yo male presenting with right eye periorbital cellulitis, diplopia. Patient with history of hypertension. He was recently admitted to [facility] 09/27 - 09/28/24 after presenting with diplopia and cranial nerve IV deficit. He was found to have hyponatremia Ul=606 as well as a spiculated mass in RUL suspicious for primary bronchogenic carcinoma. Also found to have numerous hepatic metastasis. Patient had an MRI of the brain on 09/27/24 which was NEGATIVE for infarction, lesion or metastatic disease. He was discharged home on 09/28/24. Patient had a followup visit with his PCP on 10/03/24. He had a liver biopsy performed on 10/05/24 which revealed adenocarcinoma consistent with metastatic colorectal primary. Patint has a followup appointment [facility] for 11/01/24. Patient has had swelling and pain of the right eye progressive for the last 2-3 days. He reports seeing double, pain and tearing in the eye as well as some purulent drainage. His swelling has progressed - now patient is unable to open his right eye. He denies fever, chills, chest pain, cough, SOB, nausea, vomiting. No trauma to the eye. He was seen by Ophtho today and sent to the ER. In the ER patient febrile, tachycardic ER Course: Unasyn NSS x 1L Discharge Exam VITALS: Reviewed. WEIGHT/BMI reviewed. GEN: Healthy appearing, well-developed, NAD. -Head: NC/AT; neuro: AAox3; Motor: No abnormal movements, normal tone, 5/5 t/o rt side. LUE: 3/5 elbow extension, 4/5 elbow flexion, 4+/5 abduction of shoulder. 5/5 distal hand. LLE: 4+/5 proximal and knee extension, 5/5 distal plantarflexion. Sens: intact to touch b/l grossly Coord: intact FNT b/l DTR: 1+ sym b/l -Eyes: right eye ptosis; normal vision, injection of the right eye -Mouth and throat: MMM. Normal gums, mucosa, palate,. Good dentition. NECK: Supple, with no masses. CV: RRR, no m/r/g. LUNGS: CTAB, no w/r/c. EXT: No clubbing, cyanosis, or edema. Discharge Plan Discharge Items Patient Disposition: Transfer Acute Care Hospital Reason For Visit: PRESEPTAL CELLULITIS Discharge Diagnosis: enlarge gyroma, increased in subdural collection in the right cerebral convexity and new smaller collection in the left parietal lobe bone metastasis right periorbital cellulitis right ptosis double vision metastatic cancer (liver metastasis, spine metastasis), colon primary lung nodule (rght upper lobe) Condition on Discharge: Fair Activity: Per Instructions section Lifting: Gradually increase as tolerated Non-emergency contact: Primary Care Provider Call non-emergency contact if: you have any medication questions Follow-up/Referrals: Jm Whelan DO [Primary Care Provider] - Diet: Regular Addtl Attending Provider Instructions: follow up with oncology follow up with neurosurgery Pending Studies at Discharge: No Stand-Alone Forms: My [facility] Skilled Items Patient informed of condition?: Yes DNR: No Discharge Level of Care: Other Communicable Disease: No Discharge Prognosis: Other Lines: Peripheral IV Urinary Catheter: No Medications and DC Order Prescriptions: New sodium chloride 1,000 mg Tablet,Soluble 1,000 mg PO BID 30 Days Qty: 60 0RF Continued trazodone 50 mg tablet 50 mg PO HS acetaminophen 325 mg Tablet 650 mg PO QID PRN (Reason: Fever Or Pain) thiamine HCl (vitamin B1) 100 mg Tablet 100 mg PO QAM Qty: 30 0RF amlodipine 5 mg Tablet 5 mg PO QAM Qty: 30 0RF folic acid 1 mg Tablet 1 mg PO QAM Qty: 30 0RF multivitamin with folic acid [Daily-Susan (with folic acid)] 400 mcg Tablet 1 tab PO QAM Qty: 30 0RF albuterol sulfate 90 mcg/actuation HFA aerosol inhaler 2 inh inhalation Q4H PRN (Reason: shortness of breath or wheezing) Qty: 8.5 0RF Discontinued meloxicam 15 mg tablet 15 mg PO QAM Admission Data Admit Date/Time: 10/19/24 11:27 Attending Provider: Ann Ashley Admit Provider: Richelle Murdock Primary Care Provider: Jm Whelan Other Providers: Jada Allen; Rika Reaves; Lacy Sears; Lanre Edwards; Marlene Cohn; Shruthi Velez; Angelo Ramirez Hospital Stay Data Consultations 10/18/24 09:00 Consult Infectious Diseases Routine 10/23/24 07:52 Consult Neurology Routine Diagnostic Imagining Performed 10/17/24 21:21 CT head/brain wo con Stat CT orbit BI wo/w con Stat 10/18/24 02:23 US liver Routine 10/18/24 10:12 CT head/brain wo con Urgent 10/20/24 10:17 CT orbit BI wo/w con Urgent 10/20/24 10:18 CT angio chest PE protocol Urgent 10/22/24 12:13 CTA head w con [CT angio head w con] Routine 10/22/24 12:15 MRI Brain [MR brain wo/w con] Routine Pending Results Patient Have Any Pending Studies at Discharge: No Discharge Instructions Given to Patient (Per Discharging Provider) follow up with oncology follow up with neurosurgery Total Time Total Time Spent Total Time Spent (In Minutes): 75 minutes Coding Level of Care Code 08140 INP/OBS DISCH >30 MIN Diagnoses Periorbital cellulitis L03.213 Hyponatremia E87.1 Hypertension I10 Metastatic cancer C79.9 Sepsis A41.9 SIADH (syndrome of inappropriate ADH production) E22.2 Time Spent (min) 75
== END 2024-10-23 14:16 | disposition short-term general hospital (02) | DRG 872 ==
LOC: ED 19:38 → EDINP 19:38 → SUATTDRO 10-18 02:23 → EDINP 10-18 03:51 → 2N 10-18 15:52 → SUATTDRO 10-19 11:27 → 3E 10-21 14:19